=== PATIENT | male | born 1945 | race Caucasian/White ===

== ENCOUNTER 2016-08-02 04:59 | Observation (INO) | payer MEDICARE, BC ==
[2016-08-02] MEDS ORDERED: NITROGLYCERIN SL TABS 0.4 MG TAB SUBLINGUAL STA ×3 (05:22)
[2016-08-02] MEDS ORDERED: ASPIRIN 81 MG CHEW PO STA (05:22)
--- NOTE | 2016-08-02 05:27 | ED ---
General Adult HPI - General Chief complaint: Chest Pain Stated complaint: Chest Pain/Hypertension Time Seen by Provider: 08/02/16 05:12 Source: patient, family, RN notes reviewed Mode of arrival: wheelchair Limitations: no limitations - History of Present Illness Initial comments: Patient is a pleasant 70-year-old male presenting to the emergency department chest discomfort. Symptoms woke him from sleep around 3 AM. Discomfort feels like heaviness or an ache. Discomfort is rated 8/10. Discomfort did radiate a little bit towards the back however no longer does. Discomfort is sternal. No history of similar symptoms previously. Patient's last stress test was between 1 and 2 years ago. No associated nausea, diaphoresis, or dyspnea. No leg pain or swelling. No cough or fever. - Related Data Home Medications Medication Instructions Recorded Confirmed Atorvastatin Calcium [Lipitor] 80 mg PO 08/02/16 Losartan/Hydrochlorothiazide 1 each PO BID 08/02/16 08/02/16 [Losartan-Hctz 100-12.5 mg Tab] Montelukast [Singulair] 10 mg PO DAILY 08/02/16 08/02/16 amLODIPine BESYLATE [Norvasc] 5 mg PO BID 08/02/16 08/02/16 metFORMIN HCL 1,000 mg PO BID 08/02/16 08/02/16 Allergies Allergy/AdvReac Type Severity Reaction Status Date / Time Quinolones Allergy Unknown Verified 07/12/15 08:33 Review of Systems ROS Statement: Those systems with pertinent positive or pertinent negative responses have been documented in the HPI. ROS Other: All systems not noted in ROS Statement are negative. Constitutional: Denies: fever Eyes: Denies: eye pain ENT: Denies: ear pain Respiratory: Denies: cough, dyspnea Cardiovascular: Reports: chest pain Endocrine: Denies: fatigue Gastrointestinal: Denies: abdominal pain Genitourinary: Denies: dysuria Musculoskeletal: Denies: arthralgia Skin: Denies: rash Neurological: Denies: weakness Past Medical History Past Medical History: Asthma, Diabetes Mellitus, Hypertension Additional Past Medical History / Comment(s): malaria History of Any Multi-Drug Resistant Organisms: None Reported Past Surgical History: No Surgical Hx Reported Past Psychological History: No Psychological Hx Reported Smoking Status: Light tobacco smoker Past Alcohol Use History: Occasional Past Drug Use History: None Reported General Exam Limitations: no limitations General appearance: alert, in no apparent distress Head exam: Present: atraumatic Eye exam: Present: normal appearance, PERRL ENT exam: Present: normal oropharynx Neck exam: Present: normal inspection Respiratory exam: Present: normal lung sounds bilaterally. Absent: chest wall tenderness Cardiovascular Exam: Present: regular rate, normal rhythm Expanded Peripheral pulses: 2+: Radial (R), Radial (L), Posterior Tibialis (R), Posterior Tibialis (L) GI/Abdominal exam: Present: soft. Absent: tenderness Extremities exam: Present: normal inspection. Absent: pedal edema, calf tenderness Back exam: Present: normal inspection Neurological exam: Present: alert Psychiatric exam: Present: normal affect, normal mood Skin exam: Absent: rash Course Vital Signs 08/02/16 08/02/16 08/02/16 05:06 05:20 05:50 Temperature 97.9 F Pulse Rate 75 65 68 Respiratory 20 16 16 Rate Blood Pressure 232/109 213/106 149/81 O2 Sat by Pulse 96 98 98 Oximetry 08/02/16 06:07 Temperature Pulse Rate 78 Respiratory 16 Rate Blood Pressure 142/73 O2 Sat by Pulse 98 Oximetry EKG Findings - EKG Comments: EKG Findings:: Normal sinus rhythm at 68. IL 138. QRS 1:30. QT 448. QTC 476. Normal axis. Q wave in lead 3. Right bundle branch block. No acute ST change. Medical Decision Making - Medical Decision Making Patient reevaluated and resting comfortably in bed. Discomfort has improved however not resolved. Blood pressure has improved. Case discussed in detail with Dr. Jackson, who will admit for . Admission orders written. IV heparin started. Consult placed for cardiology. - Lab Data Result diagrams: 08/02/16 05:15 08/02/16 05:15 Lab Results 08/02/16 08/02/16 08/02/16 Range/Units 05:15 05:15 05:15 WBC 8.7 (3.8-10.6) k/uL RBC 4.78 (4.30-5.90) m/uL Hgb 14.4 (13.0-17.5) gm/dL Hct 43.1 (39.0-53.0) % MCV 90.2 (80.0-100.0) fL MCH 30.1 (25.0-35.0) pg MCHC 33.3 (31.0-37.0) g/dL RDW 13.9 (11.5-15.5) % Plt Count 259 (150-450) k/uL Neutrophils % 66 % Lymphocytes % 23 % Monocytes % 6 % Eosinophils % 2 % Basophils % 1 % Neutrophils # 5.7 (1.3-7.7) k/uL Lymphocytes # 2.0 (1.0-4.8) k/uL Monocytes # 0.5 (0-1.0) k/uL Eosinophils # 0.2 (0-0.7) k/uL Basophils # 0.1 (0-0.2) k/uL PT (9.0-12.0) sec INR (<1.1) APTT (22.0-30.0) sec D-Dimer (<0.60) mg/L FEU Sodium 140 (137-145) mmol/L Potassium 4.3 (3.5-5.1) mmol/L Chloride 103 (98-107) mmol/L Carbon Dioxide 26 (22-30) mmol/L Anion Gap 11 mmol/L BUN 19 (9-20) mg/dL Creatinine 1.00 (0.66-1.25) mg/dL Est GFR (MDRD) Af Amer >60 (>60 ml/min/1.73 sqM) Est GFR (MDRD) Non-Af >60 (>60 ml/min/1.73 sqM) Glucose 208 H (74-99) mg/dL Calcium 9.2 (8.4-10.2) mg/dL Magnesium 1.6 (1.6-2.3) mg/dL Total Bilirubin 0.8 (0.2-1.3) mg/dL AST 25 (17-59) U/L ALT 29 (21-72) U/L Alkaline Phosphatase 101 (38-126) U/L Total Creatine Kinase 158 (55-170) U/L CK-MB (CK-2) 2.7 H* (0.0-2.4) ng/mL CK-MB (CK-2) Rel Index 1.7 Troponin I <0.012 (0.000-0.034) ng/mL Total Protein 7.0 (6.3-8.2) g/dL Albumin 3.7 (3.5-5.0) g/dL 04/04/17 Range/Units 05:15 WBC (3.8-10.6) k/uL RBC (4.30-5.90) m/uL Hgb (13.0-17.5) gm/dL Hct (39.0-53.0) % MCV (80.0-100.0) fL MCH (25.0-35.0) pg MCHC (31.0-37.0) g/dL RDW (11.5-15.5) % Plt Count (150-450) k/uL Neutrophils % % Lymphocytes % % Monocytes % % Eosinophils % % Basophils % % Neutrophils # (1.3-7.7) k/uL Lymphocytes # (1.0-4.8) k/uL Monocytes # (0-1.0) k/uL Eosinophils # (0-0.7) k/uL Basophils # (0-0.2) k/uL PT 10.3 (9.0-12.0) sec INR 1.0 (<1.1) APTT 24.9 (22.0-30.0) sec D-Dimer 0.42 (<0.60) mg/L FEU Sodium (137-145) mmol/L Potassium (3.5-5.1) mmol/L Chloride (98-107) mmol/L Carbon Dioxide (22-30) mmol/L Anion Gap mmol/L BUN (9-20) mg/dL Creatinine (0.66-1.25) mg/dL Est GFR (MDRD) Af Amer (>60 ml/min/1.73 sqM) Est GFR (MDRD) Non-Af (>60 ml/min/1.73 sqM) Glucose (74-99) mg/dL Calcium (8.4-10.2) mg/dL Magnesium (1.6-2.3) mg/dL Total Bilirubin (0.2-1.3) mg/dL AST (17-59) U/L ALT (21-72) U/L Alkaline Phosphatase (38-126) U/L Total Creatine Kinase (55-170) U/L CK-MB (CK-2) (0.0-2.4) ng/mL CK-MB (CK-2) Rel Index Troponin I (0.000-0.034) ng/mL Total Protein (6.3-8.2) g/dL Albumin (3.5-5.0) g/dL - Radiology Data Radiology results: image reviewed (Chest x-ray shows no acute process) Critical Care Time Critical Care Time: Yes Total Critical Care Time: 32 Disposition Clinical Impression: Unstable angina pectoris Disposition: ADMITTED IP TO THIS HOSP
[2016-08-02 05:32] LABS: Basophils # (A) 0.1 k/uL (0-0.2); Basophils % (A) 1 %; CH 30.2; CHCM 33.7; Eosinophils # (A) 0.2 k/uL (0-0.7); Eosinophils % (A) 2 %; HCT 43.1 % (39.0-53.0); HDW 2.55; HGB 14.4 gm/dL (13.0-17.5); Luc # (Auto) 0.23; Luc % (Auto) 3; Lymphocytes % (A) 23 %; MCH 30.1 pg (25.0-35.0); MCHC 33.3 g/dL (31.0-37.0); MCV 90.2 fL (80.0-100.0); Mean Platelet Volume 7.6; Monocytes # (A) 0.5 k/uL (0-1.0); Monocytes % (A) 6 %; Neutrophils # (A) 5.7 k/uL (1.3-7.7); Neutrophils % (A) 66 %; RBC 4.78 m/uL (4.30-5.90); RDW 13.9 % (11.5-15.5); WBC 8.7 k/uL (3.8-10.6); WBC (Perox) 8.55
[2016-08-02 05:44] LABS: ALT 29 U/L (21-72); AST 25 U/L (17-59); Alkaline Phosphatase 101 U/L (38-126); Anion Gap 11 mmol/L; Blood Urea Nitrogen 19 mg/dL (9-20); Calcium 9.2 mg/dL (8.4-10.2); Carbon Dioxide 26 mmol/L (22-30); Chloride 103 mmol/L (98-107); Glucose 208 mg/dL (74-99); Magnesium 1.6 mg/dL (1.6-2.3); Non-African American GFR(MDRD) >60 (>60 ml/min/1.73 sqM); Potassium 4.3 mmol/L (3.5-5.1); Sodium 140 mmol/L (137-145); Total Bilirubin 0.8 mg/dL (0.2-1.3)
[2016-08-02 05:46] LABS: Partial Thromboplastin Time 24.9 sec (22.0-30.0); Prothrombin Time 10.3 sec (9.0-12.0)
[2016-08-02 05:49] LABS: Creatine Kinase 158 U/L (55-170)
--- NOTE | 2016-08-02 05:59 | XR ---
EXAM: XR Chest, 1 View. CLINICAL HISTORY: Reason: Chest Pain TECHNIQUE: Frontal view of the chest. COMPARISON: 12/30/2015 FINDINGS: Lungs: Unremarkable. No consolidation. Pleural space: Unremarkable. No pneumothorax. Heart: Unremarkable. No cardiomegaly. Mediastinum: Unremarkable. Bones/joints: No acute osseous abnormality. IMPRESSION: No acute cardiopulmonary process.
[2016-08-02 06:03] LABS: Troponin I <0.012 ng/mL (0.000-0.034)
[2016-08-02 06:06] LABS: Creatine Kinase MB 2.7 ng/mL (0.0-2.4)
[2016-08-02] MEDS ORDERED: NITROGLYCERIN SL TABS 0.4 MG TAB SUBLINGUAL PRN (06:14)
[2016-08-02] MEDS ORDERED: HEPARIN SODIUM,PORCINE 5,000 UNIT/ML 1 ML VIAL IV PRN (06:14)
[2016-08-02] MEDS ORDERED: HEPARIN SODIUM,PORCINE 5,000 UNIT/ML 1 ML VIAL IV ONE (06:14)
[2016-08-02] MEDS ORDERED: MORPHINE SULFATE 4 MG/ML SYRINGE IVP STA (06:38)
[2016-08-02] MEDS: HEPARIN SODIUM,PORCINE/D5W PMX 25,000 UNIT in DEXTROSE/WATER 1 500ML.BAG IV SCH (06:42)
--- NOTE | 2016-08-02 07:59 | P.HPIM ---
History of Present Illness Chief complaint: Chest pain History of present illness: The patient is a 70-year-old gentleman a patient of Dr. Chambers for whom I am covering today who apparently was awakened early this morning from sleep with chest pain. It started more right-sided and moved substernally and was rather severe. It did not radiate to the jaw or to the arms. No nausea vomiting or unusual shortness of breath associated with this. The patient presented to the emergency room and has had some decrease in improvement in his pain as of now he states he is not having any pain. His is at the bedside. Patient states that he has been feeling well recently up until this episode. Past medical history: Patient has history of diabetes, hypertension, hyperlipidemia, asthma. History of tobacco use. Remote history of malaria. Apparently no history of myocardial infarction or stroke. Medications: Lipitor 80 mg daily Losartan-hydrochlorothiazide 100-12.5 one twice a day Singulair 10 mg daily Amlodipine 5 mg twice a day Metformin thousand milligrams twice a day Apparent ALLERGIES to quinolones. Review of systems: No unusual visual disturbances or headaches. No fever or chills or cough. No nausea or vomiting. He denies any urinary or bowel symptoms. No unusual edema or leg discomfort. Social history: The patient lives locally with his and does have a tobacco use disorder. Physical examination: Patient is lying on the stretcher in the emergency room and overall appears comfortable. is at bedside. Temperature 97.3 with a pulse of 61 and respirations 15. Blood pressure 151/83 and he is 97% saturated on 2 L. Head and neck exam unremarkable. Neck supple without adenopathy or thyromegaly detected. No bruits. Lungs are clear to auscultation and percussion. Heart tones were regular without murmurs appreciated. Abdomen is soft and nontender without masses or organomegaly Genital and rectal exam deferred. Extremities reveal no edema. He is alert and oriented. Cranial nerves intact. No focal neurological weakness noted. Laboratory: CBC unremarkable with a white count of 8.7, hemoglobin 14.4 and a platelet count of 259. INR was 1.0. D-dimer 0.4 to. Chemistries show a sodium of 140 with potassium 4.3 and a BUN of 19 with a creatinine 1.0, GFR greater than 60. Liver function tests unremarkable. CK was 158 with an MB of 2.7. Troponin 0.012. Albumin 3.7. EKG showed a regular sinus rhythm with possible evidence for old inferior wall OH. Chest x-ray showed no acute changes. Impressions: 1. Severe chest pain. Patient with multiple risk factors with tobacco use history, hypertension, diabetes, hyperlipidemia. The patient to be admitted to observation with cardiology consult. Follow-up enzymes. Nothing by mouth pending cardiology evaluation. Discussed with patient and at bedside. Further recommendations pending cardiology evaluation and workup. Past Medical History Past Medical History: Asthma, Diabetes Mellitus, Hypertension Additional Past Medical History / Comment(s): malaria History of Any Multi-Drug Resistant Organisms: None Reported Past Surgical History: No Surgical Hx Reported Past Psychological History: No Psychological Hx Reported Smoking Status: Light tobacco smoker Past Alcohol Use History: Occasional Past Drug Use History: None Reported Medications and Allergies Home Medications Medication Instructions Recorded Confirmed Type Aspirin 324 mg PO DAILY 08/02/16 08/02/16 History Atorvastatin Calcium [Lipitor] 80 mg PO HS 08/02/16 08/02/16 History Budesonide/Formoterol Fumarate 2 puff INHALATION RT-BID 08/02/16 08/02/16 History [Symbicort 160-4.5 Mcg Inhaler] Cholecalciferol [Vitamin D3] 2,000 unit PO DAILY 08/02/16 08/02/16 History Losartan/Hydrochlorothiazide 1 tab PO DAILY 08/02/16 08/02/16 History [Losartan-Hctz 100-12.5 mg Tab] Vgo See Protocol SQ-PUMP DAILY 08/02/16 08/02/16 History amLODIPine BESYLATE [Norvasc] 5 mg PO DAILY 08/02/16 08/02/16 History metFORMIN HCL 1,000 mg PO BID 08/02/16 08/02/16 History Allergies Allergy/AdvReac Type Severity Reaction Status Date / Time amoxicillin [From Augmentin] Allergy Unknown Verified 08/02/16 07:41 clavulanic acid Allergy Unknown Verified 08/02/16 07:41 [From Augmentin] Quinolones Allergy Unknown Verified 08/02/16 07:41 Physical Exam Vitals: Vital Signs Temp Pulse Resp BP Pulse Ox 08/02/16 07:21 97.3 F L 61 15 151/83 97 08/02/16 06:46 64 16 144/81 98 Results CBC & Chem 7: 08/02/16 05:15 08/02/16 05:15
--- NOTE | 2016-08-02 10:51 | P.CRDCN ---
History of Present Illness Consult date: 08/02/16 Requesting physician: Mason Jackson Consult reason: chest pain Chief complaint: Chest pain History of present illness: This is a pleasant 70-year-old gentleman with history of hypertension , hyperlipidemia, diabetes, asthma, occasional cigar smoking, who presented to the hospital with symptoms of chest discomfort. According to the patient, he awoke from sleep with symptoms of chest heaviness and pain in the right upper chest area, it seemed to radiate across to the chest. He denies any associated shortness of breath, no nausea or diaphoresis. Pain did radiate temporarily through to his back. Symptoms lasted until the patient came to the emergency room, he received 3 sublingual nitro with some relief of symptoms, was then given morphine with complete relief of symptoms. Blood pressure on arrival to the emergency room was 232/109, heart rate in the 70s, 96% on room air. EKG on arrival here showed a normal sinus rhythm with a right bundle branch block pattern. Chest x-ray did not reveal any acute cardiopulmonary process. Patient did have a stress echocardiographic study performed in October 2015 which did not reveal any reversible ischemia. EKG performed at that time revealed an incomplete right bundle branch block pattern. Laboratory data was reviewed, CBC normal, d-dimer 0.4, potassium 4.3, BUN 19, creatinine 1.0. Initial troponin 0.012. Magnesium level I.6. At the time of my examination this morning, patient is currently chest pain-free. Blood pressure this morning 128/ 68 with a heart rate in the 70s. Past Medical History Past Medical History: Asthma, Diabetes Mellitus, Eye Disorder, Hyperlipidemia, Hypertension, Syncope Additional Past Medical History / Comment(s): IDDM type II-insulin pump, "silent " [place] in the per EKG, syncopy x2 in 2016, L eye macular pucker-repaired, malaria History of Any Multi-Drug Resistant Organisms: None Reported Past Surgical History: No Surgical Hx Reported Additional Past Surgical History / Comment(s): L eye cataract removed, L eye laser sx, L eye macular pucker surgically repaired, colonoscopy-normal. Past Anesthesia/Blood Transfusion Reactions: No Reported Reaction Past Psychological History: No Psychological Hx Reported Additional Psychological History / Comment(s): Pt resides with his spouse. He is independent. Smoking Status: Former smoker Past Alcohol Use History: Rare Additional Past Alcohol Use History / Comment(s): Pt states he smoked cigars when hunting [id number]. He states he will drink maybe 6 beers a year. Past Drug Use History: None Reported - Past Family History Father Family Medical History: Diabetes Mellitus Additional Family Medical History / Comment(s): Father at the age of 73yrs. Mother Family Medical History: Asthma, COPD, Diabetes Mellitus Additional Family Medical History / Comment(s): Mother at the age of 68yrs. Medications and Allergies Home Medications Medication Instructions Recorded Confirmed Type Aspirin 324 mg PO DAILY 08/02/16 08/02/16 History Atorvastatin Calcium [Lipitor] 80 mg PO HS 08/02/16 08/02/16 History Budesonide/Formoterol Fumarate 2 puff INHALATION RT-BID 08/02/16 08/02/16 History [Symbicort 160-4.5 Mcg Inhaler] Cholecalciferol [Vitamin D3] 2,000 unit PO DAILY 08/02/16 08/02/16 History Losartan/Hydrochlorothiazide 1 tab PO DAILY 08/02/16 08/02/16 History [Losartan-Hctz 100-12.5 mg Tab] Vgo See Protocol SQ-PUMP DAILY 08/02/16 08/02/16 History amLODIPine BESYLATE [Norvasc] 5 mg PO DAILY 08/02/16 08/02/16 History metFORMIN HCL 1,000 mg PO BID 08/02/16 08/02/16 History Allergies Allergy/AdvReac Type Severity Reaction Status Date / Time amoxicillin [From Augmentin] Allergy Unknown Verified 08/02/16 07:41 clavulanic acid Allergy Unknown Verified 08/02/16 07:41 [From Augmentin] Quinolones Allergy Unknown Verified 08/02/16 07:41 Physical Exam Vitals: Vital Signs Temp Pulse Resp BP Pulse Ox 08/02/16 09:13 76 18 128/68 94 L 08/02/16 07:21 97.3 F L 61 15 151/83 97 08/02/16 06:46 64 16 144/81 98 PHYSICAL EXAMINATION: HEENT: [Head is atraumatic, normocephalic. Pupils equal, round. Neck is supple. There is no elevated jugular venous pressure.] HEART EXAMINATION: [Heart S1, S2 normal. No murmur or gallop heard.] CHEST EXAMINATION:[ Lungs are clear to auscultation and precussion. No chest wall tenderness is noted on palpation or with deep breathing.] ABDOMEN: [ Soft, nontender. Bowel sounds are heard. No organomegaly noted]. EXTREMITIES:[ 2+ peripheral pulses with no evidence of peripheral edema and no calf tenderness noted]. NEUROLOGIC [patient is awake, alert and oriented -3.] . Results 08/02/16 05:15 08/02/16 05:15 Current Medications Generic Name Dose Route Start Last Admin Trade Name Freq PRN Reason Stop Dose Admin Aspirin 325 mg 08/03/16 09:00 Aspirin PO DAILY [facility] Heparin Sodium (Porcine) 0 unit 08/02/16 06:14 Heparin IV Q6HR PRN Low PTT Protocol Heparin Sodium/Dextrose 25,000 500 mls @ 20.01 mls/hr 08/02/16 06:15 06:42 unit/ IV Solution IV 10.26 units/kg/hr .Q24H ОЛЬГА 20.01 mls/hr Protocol Administration 10.26 UNITS/KG/HR Nitroglycerin 1 inch 08/02/16 12:00 Nitro-Bid Oint TOPICAL Q6HR [facility] Nitroglycerin 0.4 mg 08/02/16 06:14 Nitrostat SUBLINGUAL Q5M PRN Chest Pain Sodium Chloride 10 ml 08/02/16 09:00 08/02/16 09:32 Saline Flush IV 10 ml BID ОЛЬГА Administration EKG Interpretations (text) EKG shows a normal sinus rhythm with right bundle branch block pattern Assessment and Plan Plan: Assessment and plan #1 midsternal chest pressure and heaviness, initial troponin negative. EKG shows normal sinus rhythm with a right bundle branch block pattern. Stress echocardiographic study performed one year ago was negative for any reversible ischemia. #2 accelerated hypertension #3 history of hypertension #4 diabetes #5 hyperlipidemia #6 asthma Plan We will obtain an echocardiogram with Doppler study. We will also request 2 more troponin values be obtained. The patient is currently chest pain-free, symptoms could be secondary to accelerated hypertension. If the troponins are negative 3 we will recommend stress testing be performed. We will continue IV heparin for now. Resume the patient's losartan, Lipitor, and Norvasc. Further recommendations to follow. DNP note has been reviewed, I agree with a documented findings and plan of care. Patient was seen and examined.
[2016-08-02 12:27] LABS: Glucose,Whole Blood 207 mg/dL (75-99)
[2016-08-02] MEDS ORDERED: INSULIN LISPRO (humaLOG) 300 UNIT/3 ML VIAL SQ PRN (12:54)
[2016-08-02] MEDS ORDERED: INSULIN PUMP BASAL RATES 1 EACH MISC MISCELLANE PRN (12:54)
[2016-08-02 12:55] LABS: Creatine Kinase 113 U/L (55-170)
[2016-08-02 13:09] LABS: Creatine Kinase MB 1.9 ng/mL (0.0-2.4); Troponin I <0.012 ng/mL (0.000-0.034)
--- NOTE | 2016-08-02 13:58 | P.PN ---
Progress Note - Text This is an addendum to the dictated cardiology consultation. The patient presented with chest discomfort that woke him up from sleep, lasting for about 9 hours. He had no associated diaphoresis, nausea or vomiting. He's feeling well at this time. He is usually active physically and he has no symptoms of exertional chest pain no significant dyspnea. He has a long-standing history of diabetes no documented history of CAD. His EKG shows a chronic right bundle branch block and his initial troponin is normal. If his subsequent troponin evaluation is normal then I will proceed with a stress echocardiogram in the morning and depending on those results further recommendations will be made. Thank you for this consult we will follow with you.
[2016-08-02] MEDS: INSULIN PUMP MEAL BOLUS 1 UNIT MISC MISCELLANE SCH (17:47)
[2016-08-02] MEDS: NITROGLYCERIN OINT 1 INCH/GM PACKET TOPICAL SCH ×2 (17:47→21:53)
[2016-08-02 18:36] LABS: Creatine Kinase 107 U/L (55-170)
[2016-08-02 18:50] LABS: Creatine Kinase MB 1.8 ng/mL (0.0-2.4); Troponin I <0.012 ng/mL (0.000-0.034)
[2016-08-02] MEDS ORDERED: ATORVASTATIN 80 MG TAB PO SCH (21:00)
[2016-08-03] MEDS: NITROGLYCERIN OINT 1 INCH/GM PACKET TOPICAL SCH ×2 (06:00→16:36)
[2016-08-03] MEDS: INSULIN PUMP MEAL BOLUS 1 UNIT MISC MISCELLANE SCH ×3 (06:00→13:24)
[2016-08-03 06:49] LABS: Glucose,Whole Blood 138 mg/dL (75-99)
[2016-08-03 07:29] LABS: Mean Platelet Volume 7.6
[2016-08-03 07:48] LABS: Cholesterol 185 mg/dL (<200); HDL Cholesterol 51 mg/dL (40-60); Triglycerides 126 mg/dL (<150)
[2016-08-03] MEDS: HEPARIN SODIUM,PORCINE/D5W PMX 25,000 UNIT in DEXTROSE/WATER 1 500ML.BAG IV SCH (08:35)
[2016-08-03 08:46] VITALS: RESP 18
[2016-08-03] MEDS ORDERED: HYDROCHLOROTHIAZIDE 12.5 MG CAP PO SCH (09:00)
[2016-08-03] MEDS ORDERED: amLODIPine 5 MG TAB PO SCH (09:00)
[2016-08-03] MEDS ORDERED: ASPIRIN 81 MG CHEW PO SCH (09:00)
[2016-08-03] MEDS ORDERED: ASPIRIN 325 MG TAB PO SCH (09:00)
[2016-08-03] MEDS ORDERED: LOSARTAN 50 MG TAB PO SCH (09:00)
--- NOTE | 2016-08-03 10:06 | ECHOF ---
Referral Reason:chest pain MEASUREMENTS -------- HEIGHT: 175.3 cm WEIGHT: 97.5 kg BP: 128/68 RVIDd: 3.3 cm (< 3.3) IVSd: 1.4 cm (0.6 - 1.1) LVIDd: 3.9 cm (3.9 - 5.3) LVPWd: 1.2 cm (0.6 - 1.1) IVSs: 2.0 cm LVIDs: 3.1 cm LVPWs: 1.9 cm LA Diam: 4.0 cm (2.7 - 3.8) LAESV Index (A-L): 32.83 ml/m Ao Diam: 3.2 cm (2.0 - 3.7) AV Cusp: 2.0 cm (1.5 - 2.6) LA Diam: 3.0 cm (2.7 - 3.8) MV EXCURSION: 14.924 mm (> 18.000) MV EF SLOPE: 50 mm/s (70 - 150) EPSS: 0.3 cm MV E Elliott: 0.70 m/s MV DecT: 255 ms MV A Elliott: 1.05 m/s MV E/A Ratio: 0.67 RAP: 5.00 mmHg RVSP: 24.90 mmHg FINDINGS -------- Sinus rhythm. This was a technically adequate study. There is moderate concentric left ventricular hypertrophy. Overall left ventricular systolic function is normal with, an EF between 55 - 60 %. The right ventricle is mildly enlarged. The right atrium is normal in size. Aortic valve is trileaflet and is mildly thickened. The mitral valve leaflets are mildly thickened. Mild mitral annular calcification present. Mild mitral regurgitation is present. Mild tricuspid regurgitation present. Right ventricular systolic pressure is normal at < 35 mmHg. Trace/mild (physiologic) pulmonic regurgitation. The aortic root size is normal. IVC Not well visulized. There is no pericardial effusion. CONCLUSIONS -------- 1. Sinus rhythm. 2. Mild mitral regurgitation is present. 3. Mild tricuspid regurgitation present. 4. Right ventricular systolic pressure is normal at < 35 mmHg. 5. Trace/mild (physiologic) pulmonic regurgitation. 6. The aortic root size is normal. 7. IVC Not well visulized. 8. There is no pericardial effusion. 9. This was a technically adequate study. 10. There is moderate concentric left ventricular hypertrophy. 11. Overall left ventricular systolic function is normal with, an EF between 55 - 60 %. 12. The right ventricle is mildly enlarged. 13. The right atrium is normal in size. 14. Aortic valve is trileaflet and is mildly thickened. 15. The mitral valve leaflets are mildly thickened. 16. Mild mitral annular calcification present. LADLE BUILDER: Ugo Huerta RDCS
--- NOTE | 2016-08-03 11:56 | PN ---
Mr. Hyatt presented with an episode of chest pain. He has hypertension and diabetes. He has no documented history of CAD. He has a right bundle and his 3 sets of troponins are normal. He is going for an EKG. He is resting comfortably without symptoms. Vital signs are stable. S1, S2 heard normally. Lungs are clear. Abdomen and lower extremity exam is unchanged. Blood pressure is 156/70. He does have history of hypertension and type 2 diabetes mellitus with better blood pressure control lately. He will have a stress echocardiogram. Following this, based on findings, will make further recommendations. I discussed my thoughts in detail with the patient.
[2016-08-03 12:20] LABS: Glucose,Whole Blood 153 mg/dL (75-99)
--- NOTE | 2016-08-03 12:31 | ECHOS ---
DATE OF SERVICE: 08/03/2016 AGE: 70Y SEX: M HT: 69 WT: 215lbs. Protocol Tushar: X Others: Stress Echo Stage: II Dur. of Exercise: 5 minutes *Heart Rate Blood Pressure *Rest: 101 Rest: 162/71 * *Max. Achieved: 141 Maximum BP: 209/63 85% PMHR: 128 100% PMHR: 150 *METS: 7.1 INDICATIONS: Chest pain. MEDICATIONS: Aspirin. Patient was exercised for a total period of 5 minutes. Peak heart rate of 141 was achieved. Maximum blood pressure of 209/63 mmHg is noted. Resting EKG shows normal sinus rhythm with a QRS morphology suggestive of right bundle branch block pattern is noted. No ST segment depression suggestive of ischemia is noted. The baseline echocardiographic ( ) ventricular chamber size with normal left ventricular systolic function. In the immediate postexercise period, normal increase in the wall thickness and contractility is noted. FINAL IMPRESSION: 1. This stress echocardiographic study is negative for stress-induced ischemia. 2. Patient's exercise tolerance is average. 3. Patient did not complain of any anginal pain during the test.
[2016-08-03 12:43] VITALS: BP 168/92; PULSE 82; TEMP 97.8
--- NOTE | 2016-08-03 13:38 | US ---
EXAMINATION TYPE: US gallbladder DATE OF EXAM: 08/03/2016 1:14 PM COMPARISON: NONE CLINICAL HISTORY: pain. EXAM MEASUREMENTS: Liver Length: 16.7 cm Gallbladder Wall: 1.1 cm CBD: 0.4 cm Right Kidney: 13.5 x 6.4 x 5.3 cm Patient has extensive overlying midline bowel gas and somewhat large abdomen, technically difficult s tudy Pancreas: Obscured by bowel gas Liver: portions visualized wnl, difficult to view Gallbladder: wall severely thickened Evidence for sonographic Núñez's sign: no CBD: difficult to visualize, small portion viewed appeared wnl Right Kidney: cyst upper pole measuring 3.5 x 3.9 x 3.5cm, enlarged IMPRESSION: 1. Gallbladder wall is thickened measuring greater than a centimeter. No definite stones. Consider co rrelation with HIDA scan to assess for acalculous cholecystitis. 2. Pattern to the liver suggests fatty infiltration or hepatitis correlate clinically. 3. Simple appearing right renal cyst
--- NOTE | 2016-08-04 22:43 | DS ---
DATE OF ADMISSION: 08/02/2016 DATE OF DISCHARGE: 08/03/2016 CHIEF COMPLAINT: Re-evaluation. HISTORY OF PRESENT ILLNESS: This 70-year-old gentleman was admitted to the hospital with chest pain. The patient said he woke up with chest pain, which is in the right side of the chest and radiating towards the mid back. The patient said the pain was like an ache, dull ache sensation with heaviness sensation, no associated diaphoresis, nausea, vomiting, heartburn, or any palpitations. The patient did have progression of the symptoms, presented to the emergency room and especially his blood pressure was elevated. In the ER, the patient was noted to have elevated blood pressures which did improve with treatment especially for pain. The patient following that was admitted to the hospital as he also had a right bundle branch block. The patient has undergone serial troponin evaluations which remained in the normal range. In view of this, the patient underwent a stress echo which did reveal not any stress-induced ischemia. The patient did not have any symptoms during testing. The patient also underwent an ultrasound of the gallbladder which revealed no cholelithiasis, however, it does reveal thickening of the gallbladder. The gallbladder wall was not thickened, measuring greater than 1 cm. No definite stones were seen. No ( ) fat infiltration in the liver and right renal cyst. ASSESSMENT: 1. Chest pain, etiology undetermined. 2. Possibility of chronic cholecystitis. 3. Accelerated hypertension. 4. Diabetes mellitus. 5. History of bronchial asthma. PLAN: The patient was discharged home. We will evaluate the patient as outpatient. He is probably going to require his gallbladder to be removed due to history of diabetes mellitus and significantly thickened gallbladder. Patient's condition was discussed with the patient. Prognosis guarded. Follow up in the outpatient. The patient was seen by cardiology.
== END 2016-08-03 16:11 | disposition home or self-care (01) ==
LOC: EC 04:59 → 3OBS 06:14
PROVIDERS: ADMIT Internal Medicine; ATTEND Internal Medicine
DX: R07.9 Chest pain, unspecified (principal); I10 Essential (primary) hypertension; E11.9 Type 2 diabetes mellitus without complications; J45.909 Unspecified asthma, uncomplicated; I45.10 Unspecified right bundle-branch block; N28.1 Cyst of kidney, acquired; E78.5 Hyperlipidemia, unspecified; F17.200 Nicotine dependence, unspecified, uncomplicated; I25.2 Old myocardial infarction; Z79.4 Long term (current) use of insulin; Z79.82 Long term (current) use of aspirin; Z79.899 Other long term (current) drug therapy; Z79.51 Long term (current) use of inhaled steroids; Z79.84 Long term (current) use of oral hypoglycemic drugs; Z88.0 Allergy status to penicillin; Z88.8 Allergy status to other drugs, medicaments and biological substances
CPT/HCPCS: 96365 ×2; 96366 ×5; 96376 ×2; 96375 ×2; 99291 ×2; 36415; 93005; 93017; 93306; 93350; 85379; 80061; 80053; 82550; 82553; 83735; 84484; 85025; 85049; 85610; 85730 ×2; 71020; 76705; G0378 ×2; J2270; J1644 ×2

== ENCOUNTER 2019-02-19 07:36 | Emergency (ER) | payer MEDICARE, BC ==
[2019-02-19 07:41] VITALS: TEMP 98.9
[2019-02-19] MEDS ORDERED: IPRATROPIUM-ALBUTEROL 3 ML NEB INHALATION STA (07:52)
--- NOTE | 2019-02-19 07:55 | ED ---
General Adult HPI - General Chief complaint: Shortness of Breath Stated complaint: asthma Time Seen by Provider: 02/19/19 07:43 Source: patient, RN notes reviewed Mode of arrival: ambulatory Limitations: no limitations - History of Present Illness Initial comments: Patient is a pleasant 73-year-old male with history of asthma presenting to the emergency department complaining of shortness of breath. Patient uses inhaler with minimal improvement. Patient states he has been painting for the past 2 days and has been exposed to paint fumes which she attributes to worsening symptoms. Patient does have mild dry cough. No fever. No chest pain. No leg pain. Patient is on Eliquis secondary to history of DVT. Patient has been taking his Eliquis. Patient does have some mild leg swelling however states is chronic and unchanged. - Related Data Home Medications Medication Instructions Recorded Confirmed Aspirin 324 mg PO DAILY 08/02/16 08/02/16 Atorvastatin Calcium [Lipitor] 80 mg PO HS 08/02/16 08/02/16 Budesonide/Formoterol Fumarate 2 puff INHALATION RT-BID 08/02/16 08/02/16 [Symbicort 160-4.5 Mcg Inhaler] Cholecalciferol [Vitamin D3] 2,000 unit PO DAILY 08/02/16 08/02/16 Losartan/Hydrochlorothiazide 1 tab PO DAILY 08/02/16 08/02/16 [Losartan-Hctz 100-12.5 mg Tab] Vgo See Protocol SQ-PUMP DAILY 08/02/16 08/02/16 amLODIPine BESYLATE [Norvasc] 5 mg PO DAILY 08/02/16 08/02/16 metFORMIN HCL 1,000 mg PO BID 08/02/16 08/02/16 Previous Rx's Medication Instructions Recorded Azithromycin [Zithromax Z-pack] 250 mg PO DIRECTED #6 tab 02/19/19 predniSONE 20 mg PO BID #10 tab 02/19/19 Allergies Allergy/AdvReac Type Severity Reaction Status Date / Time amoxicillin [From Augmentin] Allergy Unknown Verified 08/02/16 07:41 clavulanic acid Allergy Unknown Verified 08/02/16 07:41 [From Augmentin] Iodine and Iodide Containing Allergy Rash/Hives Verified 04/18/17 11:21 Produc Quinolones Allergy Unknown Verified 08/02/16 07:41 Review of Systems ROS Statement: Those systems with pertinent positive or pertinent negative responses have been documented in the HPI. ROS Other: All systems not noted in ROS Statement are negative. Constitutional: Denies: fever Eyes: Denies: eye pain ENT: Denies: ear pain Respiratory: Reports: as per HPI, cough, dyspnea Cardiovascular: Denies: chest pain Endocrine: Denies: fatigue Gastrointestinal: Denies: abdominal pain Genitourinary: Denies: dysuria Musculoskeletal: Denies: back pain Skin: Denies: rash Neurological: Denies: weakness Past Medical History Past Medical History: Asthma, Diabetes Mellitus, Eye Disorder, Hyperlipidemia, Hypertension, Syncope Additional Past Medical History / Comment(s): IDDM type II-insulin pump, "silent" ND in the per EKG, syncopy x2 in 2016, L eye macular pucker- repaired, malaria History of Any Multi-Drug Resistant Organisms: None Reported Past Surgical History: No Surgical Hx Reported Additional Past Surgical History / Comment(s): L eye cataract removed, L eye laser sx, L eye macular pucker surgically repaired, colonoscopy-normal. Past Anesthesia/Blood Transfusion Reactions: No Reported Reaction Past Psychological History: No Psychological Hx Reported Smoking Status: Former smoker Past Alcohol Use History: Rare Past Drug Use History: None Reported - Past Family History Father Family Medical History: Diabetes Mellitus Additional Family Medical History / Comment(s): Father at the age of 73yrs. Mother Family Medical History: Asthma, COPD, Diabetes Mellitus Additional Family Medical History / Comment(s): Mother at the age of 68yrs. General Exam Limitations: no limitations General appearance: alert, in no apparent distress Head exam: Present: normocephalic Eye exam: Present: normal appearance Neck exam: Present: normal inspection Respiratory exam: Present: wheezes Cardiovascular Exam: Present: regular rate, normal rhythm GI/Abdominal exam: Present: soft. Absent: tenderness Extremities exam: Present: pedal edema (+1 bilateral). Absent: calf tenderness Neurological exam: Present: alert Psychiatric exam: Present: normal affect, normal mood Skin exam: Present: normal color Course Vital Signs 02/19/19 02/19/19 02/19/19 07:39 07:41 08:21 Temperature 98.9 F Pulse Rate 89 68 Respiratory 17 20 Rate Blood Pressure 201/96 O2 Sat by Pulse 99 Oximetry 02/19/19 02/19/19 08:30 08:35 Temperature Pulse Rate 72 72 Respiratory 20 Rate Blood Pressure 179/80 O2 Sat by Pulse 95 Oximetry Medical Decision Making - Medical Decision Making Patient reevaluated and improved. Lungs are clear to auscultation. Patient states breathing is not quite 100% normal however is much better than last night and when he arrived. Patient states he is comfortable with his breathing and discharged home. Patient states he does have a follow-up appointment within a week with pulmonary and will keep this. Patient and updated on chest x-ray results and need for repeat chest x-ray in the next few weeks. - Radiology Data Radiology results: image reviewed (Chest x-ray shows possible developing atelectasis or infiltrate peripheral right base.) Disposition Clinical Impression: Asthma with acute exacerbation Disposition: HOME SELF-CARE Condition: Stable Instructions (If sedation given, give patient instructions): Asthma (ED), Pneumonia (ED) Additional Instructions: Please follow-up with primary care physician in the next couple of days for recheck. Please follow-up with pulmonary physician within the next week as planned. He will need to have repeat x-ray done within the next couple of weeks up until one month. Return for fevers, difficult to breathing, worsening symptoms or any other concerns. Prescriptions: predniSONE 20 mg PO BID #10 tab Azithromycin [Zithromax Z-pack] 250 mg PO DIRECTED #6 tab Is patient prescribed a controlled substance at d/c from ED?: No Referrals: Yasmani Chambers MD [Primary Care Provider] - 1-2 days Addi Matos DO [Doctor of Osteopathic Medicine] - 1-2 days Time of Disposition: 08:55
[2019-02-19 08:13] VITALS: RESP 20
[2019-02-19 08:31] VITALS: BP 179/80; PULSE 72
--- NOTE | 2019-02-19 08:36 | XR ---
EXAMINATION TYPE: XR chest 1V portable DATE OF EXAM: 02/19/2019 Comparison: 08/02/2016 Clinical History: 73 year-old male shortness of breath, dyspnea Findings: Heart upper limits of normal in size. Underpenetration from large patient body habitus. Mild diffuse interstitial prominence. Strandy atelectasis in the lower lungs. 8 cc peripheral lung densities relat ed to overlying soft tissue. Focal opacity of the peripheral right lower lung difficult to exclude. Impression: Limited portable exam. Follow up recommended. Unable to exclude developing atelectasis or infiltrate at the peripheral right base.
[2019-02-19] MEDS ORDERED: predniSONE 50 MG TAB PO STA (08:56)
[2019-02-19] MEDS ORDERED: AZITHROMYCIN 500 MG TAB PO STA (08:56)
== END 2019-02-19 09:23 | disposition home or self-care (01) ==
LOC: EC 07:36
DX: J45.901 Unspecified asthma with (acute) exacerbation (principal); R60.0 Localized edema; E11.9 Type 2 diabetes mellitus without complications; E78.5 Hyperlipidemia, unspecified; I10 Essential (primary) hypertension; I25.2 Old myocardial infarction; Z87.891 Personal history of nicotine dependence; Z88.0 Allergy status to penicillin; Z88.1 Allergy status to other antibiotic agents; Z91.048 Other nonmedicinal substance allergy status; Z79.01 Long term (current) use of anticoagulants; Z79.51 Long term (current) use of inhaled steroids; Z79.82 Long term (current) use of aspirin; Z79.84 Long term (current) use of oral hypoglycemic drugs; Z79.899 Other long term (current) drug therapy; Z96.41 Presence of insulin pump (external) (internal); Z86.718 Personal history of other venous thrombosis and embolism; Z82.5 Family history of asthma and other chronic lower respiratory diseases
CPT/HCPCS: 94640; 71045; 99285; J7512

== ENCOUNTER 2019-08-15 15:21 | Observation (INO) | payer MEDICARE, BC ==
[2019-08-15 17:04] LABS: Basophils % (A) 0 %; Eosinophils # (A) 0.1 k/uL (0-0.7); Eosinophils % (A) 2 %; HCT 34.6 % (39.0-53.0); HGB 11.1 gm/dL (13.0-17.5); Lymphocytes # (A) 0.6 k/uL (1.0-4.8); Lymphocytes % (A) 14 %; MCHC 32.1 g/dL (31.0-37.0); MCV 90.4 fL (80.0-100.0); Mean Platelet Volume 8.3; Monocytes # (A) 0.3 k/uL (0-1.0); Monocytes % (A) 7 %; Neutrophils % (A) 73 %; Platelet Count 254 k/uL (150-450); RBC 3.83 m/uL (4.30-5.90); RDW 14.1 % (11.5-15.5); WBC 4.1 k/uL (3.8-10.6)
[2019-08-15 17:13] LABS: Partial Thromboplastin Time 24.2 sec (22.0-30.0); Prothrombin Time 10.4 sec (9.0-12.0)
[2019-08-15 17:15] LABS: ALT 13 U/L (4-49); AST 23 U/L (17-59); African American GFR (CKD) >90 (>60 ml/min/1.73 sqM); Albumin 3.3 g/dL (3.5-5.0); Alkaline Phosphatase 84 U/L (38-126); Anion Gap 6 mmol/L; Blood Urea Nitrogen 17 mg/dL (9-20); Calcium 8.6 mg/dL (8.4-10.2); Carbon Dioxide 25 mmol/L (22-30); Chloride 105 mmol/L (98-107); Glucose 187 mg/dL (74-99); Non-African American GFR(CKD) 86 (>60 ml/min/1.73 sqM); Sodium 136 mmol/L (137-145); Total Bilirubin 0.8 mg/dL (0.2-1.3); Total Protein 6.3 g/dL (6.3-8.2)
--- NOTE | 2019-08-15 17:21 | XR ---
EXAMINATION TYPE: XR chest 2V DATE OF EXAM: 08/15/2019 COMPARISON: 02/19/2019 INDICATION: Altered mental status TECHNIQUE: Frontal and lateral views of the chest are obtained. FINDINGS: The heart size is normal. The pulmonary vasculature is normal. The lungs are clear. IMPRESSION: 1. No acute pulmonary process.
--- NOTE | 2019-08-15 17:25 | CT ---
EXAMINATION TYPE: CT brain wo con DATE OF EXAM: 08/15/2019 COMPARISON: 10/03/2014 INDICATION: Thought to speech difficulty. DLP: 1159.4 mGycm, Automated exposure control for dose reduction was used. CONTRAST: None CT of the brain is performed utilizing 3 mm thick sections through the posterior fossa and 3 mm thick sections through the remaining calvarium. Study is performed within 24 hours of arrival to the hosp [facility]. No abnormal hyperdensity is present to suggest an acute intracranial hemorrhage. No mass lesion is evident. There is some hypodensity within the anterior brainstem. This could be related to beam hardening zach fact from the skull base. This may be a change however from 2014. MRI may be more sensitive for this region evaluation. Acute infarction is not otherwise identified. Ventricles and sulci are appropriate for the patient age. Paranasal sinuses and mastoid air cells within the [id number] are clear. IMPRESSIONS: 1. Some hypodensity within the brainstem more likely related to artifact. Lacunar infarction could be considered. Consider additional evaluation with MRI which may be more sensitive for evaluating thi s region. 2. CT of the brain is otherwise unremarkable.
--- NOTE | 2019-08-15 18:12 | ED ---
General Adult HPI - General Chief complaint: Neuro Symptoms/Deficit Stated complaint: speech difficulty, rash Time Seen by Provider: 08/15/19 16:05 Source: patient Mode of arrival: wheelchair Limitations: no limitations - History of Present Illness Initial comments: The patient is a 73-year-old male with past medical history of diabetes, hypertension who presents to emergency room with reported expressive aphasia. The patient's is accompanied by his . states that around 11:30 AM the patient began having expressive aphasia. Symptoms lasted for approximately 15 minutes before they spontaneously resolved. The patient once again had expre ssive aphasia at 2:30. This is when the brought him into the emergency department. At the time he arrived his symptoms had completely resolved. He denies any unilateral numbness or weakness. No headaches or visual changes. Denies vertiginous symptoms. No facial droop. She has had a history of a TIA 20 years ago. The patient does see Dr. Munoz in the outpatient setting and the patient denies any fevers or chills. No nausea or vomiting. Denies any chest pain. The patient is on Eliquis for DVT. The patient also reports to a diffuse body rash. He states he gets it yearly. He has seen a clinical molecular geneticist for it was put on recurring. Reports that he has since run out of the cream and is requesting refill. There are no alleviating, precipitating or modifying factors - Related Data Home Medications Medication Instructions Recorded Confirmed Atorvastatin Calcium [Lipitor] 80 mg PO DAILY 08/02/16 08/15/19 Budesonide/Formoterol Fumarate 2 puff INHALATION RT-BID 08/02/16 08/15/19 [Symbicort 160-4.5 Mcg Inhaler] amLODIPine BESYLATE [Norvasc] 5 mg PO BID 08/02/16 08/15/19 metFORMIN HCL 1,000 mg PO BID 08/02/16 08/15/19 Albuterol Nebulized [Ventolin 2.5 mg INHALATION RT-QID PRN 02/19/19 08/15/19 Nebulized] Apixaban [Eliquis] 5 mg PO BID 02/19/19 08/15/19 Bicalutamide [Casodex] 50 mg PO DAILY 02/19/19 08/15/19 Losartan/Hydrochlorothiazide 1 tab PO DAILY 02/19/19 08/15/19 [Losartan-Hctz 100-12.5 mg Tab] Montelukast [Singulair] 10 mg PO HS 02/19/19 08/15/19 Pantoprazole Sodium [Protonix] 40 mg PO DAILY 02/19/19 08/15/19 Tiotropium 18 Mcg/Puff [Spiriva] 1 cap INHALATION RT-HS 02/19/19 08/15/19 Betamethasone Valerate [Luxiq 1 applic TOPICAL BID 08/15/19 08/15/19 0.01%] Calcium Carbonate/Vitamin D3 1 tab PO DAILY 08/15/19 08/15/19 [Calcium 600-Vit D3 400 Tablet] Escitalopram [Lexapro] 10 mg PO DAILY 08/15/19 08/15/19 Tamsulosin [Flomax] 0.4 mg PO HS 08/15/19 08/15/19 V-Go 40 0.01 units SQ-PUMP CONTINUOUS 08/15/19 08/15/19 hydrOXYzine HCL 10 - 20 mg PO QID 08/15/19 08/15/19 predniSONE 10 mg PO BID 08/15/19 08/15/19 Aspirin [Adult Low Dose Aspirin EC] 81 mg PO DAILY 08/16/19 08/16/19 Atorvastatin [Lipitor] 80 mg PO HS 08/16/19 08/16/19 Mepolizumab [Nucala] 100 mg SQ Q28D 08/16/19 08/16/19 Allergies Allergy/AdvReac Type Severity Reaction Status Date / Time amoxicillin [From Augmentin] Allergy Vomiting Verified 08/15/19 19:06 clavulanic acid Allergy Vomiting Verified 08/15/19 19:06 [From Augmentin] Iodine and Iodide Containing Allergy Rash/Hives Verified 08/15/19 19:06 Produc Quinolones Allergy Unknown Verified 08/15/19 19:06 Review of Systems ROS Statement: Those systems with pertinent positive or pertinent negative responses have been documented in the HPI. ROS Other: All systems not noted in ROS Statement are negative. Past Medical History Past Medical History: Asthma, Diabetes Mellitus, Eye Disorder, Hyperlipidemia, Hypertension, Syncope Additional Past Medical History / Comment(s): IDDM type II-insulin pump, "silent" MD in the s per EKG, syncopy x2 in 2016, L eye macular pucker- repaired, malaria History of Any Multi-Drug Resistant Organisms: None Reported Past Surgical History: No Surgical Hx Reported Additional Past Surgical History / Comment(s): L eye cataract removed, L eye laser sx, L eye macular pucker surgically repaired, colonoscopy-normal. Past Anesthesia/Blood Transfusion Reactions: No Reported Reaction Past Psychological History: No Psychological Hx Reported Smoking Status: Former smoker Past Alcohol Use History: Rare Past Drug Use History: None Reported - Past Family History Father Family Medical History: Diabetes Mellitus Additional Family Medical History / Comment(s): Father at the age of 73yrs. Mother Family Medical History: Asthma, COPD, Diabetes Mellitus Additional Family Medical History / Comment(s): Mother at the age of 68yrs. General Exam Limitations: no limitations General appearance: alert, in no apparent distress Head exam: Present: atraumatic, normocephalic, normal inspection Eye exam: Present: normal appearance, PERRL, EOMI. Absent: scleral icterus, conjunctival injection, periorbital swelling ENT exam: Present: normal exam, mucous membranes moist Neck exam: Present: normal inspection. Absent: tenderness, meningismus, lymphadenopathy Respiratory exam: Present: normal lung sounds bilaterally. Absent: respiratory distress, wheezes, rales, rhonchi, stridor Cardiovascular Exam: Present: regular rate, normal rhythm, normal heart sounds. Absent: systolic murmur, diastolic murmur, rubs, gallop, clicks GI/Abdominal exam: Present: soft, normal bowel sounds. Absent: distended, tenderness, guarding, rebound, rigid Extremities exam: Present: normal inspection, full ROM, normal capillary refill. Absent: tenderness, pedal edema, joint swelling, calf tenderness Back exam: Present: normal inspection Neurological exam: Present: alert, oriented X3, CN II-XII intact Psychiatric exam: Present: normal affect, normal mood Skin exam: Present: warm, dry, rash (bilateral dorsal upper extremities. Spares palms and soles. Also on trunk and lower extremities. Appears patchy, red with skin fissuring) Course Vital Signs 08/15/19 08/15/19 08/15/19 15:23 16:45 19:22 Temperature 97.7 F Pulse Rate 88 74 72 Respiratory 18 18 18 Rate Blood Pressure 152/80 116/80 187/75 O2 Sat by Pulse 99 100 100 Oximetry 08/15/19 21:11 Temperature 98.2 F Pulse Rate 72 Respiratory 18 Rate Blood Pressure 185/89 O2 Sat by Pulse 99 Oximetry EKG Findings - EKG Comments: EKG Findings:: EKG demonstrates a sinus rhythm with premature atrial complexes. Rate of 72. AK interval 152. QRS 126. QTC of 494. No acute ST segment elevations or depressions concerning for ischemic changes Medical Decision Making - Medical Decision Making Upon arrival the patient is placed into room 15. A thorough history and ph ysical exam is performed. NIH stroke scale is performed and demonstrates a score of 0. Peripheral IV was established. Laboratory studies were conducted. Glucose is 187. Troponin is negative. I did do a CT of the patient's brain without contrast as he is ALLERGIC to iodine which demonstrated some hypodensity within the brainstem more likely related to artifact. Lacunar infarct be considered. We discussed results with the patient. He continues to have an NH of 0. Discussed diagnosis, differential and treatment options. I did recommend hospital admission for neurologic consultation. The patient did agree to this. Patient was admitted to [facility] with neurology consult. I ordered steroid cream and benadryl for the patients rash. The patient remained in stable condition and was transported to the floor - Lab Data Result diagrams: 08/15/19 16:42 08/16/19 07:03 Lab Results 08/15/19 08/15/19 08/15/19 Range/Units 16:42 16:42 16:42 WBC 4.1 (3.8-10.6) k/uL RBC 3.83 L (4.30-5.90) m/uL Hgb 11.1 L (13.0-17.5) gm/dL Hct 34.6 L (39.0-53.0) % MCV 90.4 (80.0-100.0) fL MCH 29.0 (25.0-35.0) pg MCHC 32.1 (31.0-37.0) g/dL RDW 14.1 (11.5-15.5) % Plt Count 254 (150-450) k/uL Neutrophils % 73 % Lymphocytes % 14 % Monocytes % 7 % Eosinophils % 2 % Basophils % 0 % Neutrophils # 3.0 (1.3-7.7) k/uL Lymphocytes # 0.6 L (1.0-4.8) k/uL Monocytes # 0.3 (0-1.0) k/uL Eosinophils # 0.1 (0-0.7) k/uL Basophils # 0.0 (0-0.2) k/uL PT 10.4 (9.0-12.0) sec INR 1.0 (<1.2) APTT 24.2 (22.0-30.0) sec Sodium 136 L (137-145) mmol/L Potassium 4.0 (3.5-5.1) mmol/L Chloride 105 (98-107) mmol/L Carbon Dioxide 25 (22-30) mmol/L Anion Gap 6 mmol/L BUN 17 (9-20) mg/dL Creatinine 0.86 (0.66-1.25) mg/dL Est GFR (CKD-EPI)AfAm >90 (>60 ml/min/1.73 sqM) Est GFR (CKD-EPI)NonAf 86 (>60 ml/min/1.73 sqM) Glucose 187 H (74-99) mg/dL Calcium 8.6 (8.4-10.2) mg/dL Total Bilirubin 0.8 (0.2-1.3) mg/dL AST 23 (17-59) U/L ALT 13 (4-49) U/L Alkaline Phosphatase 84 (38-126) U/L Troponin I (0.000-0.034) ng/mL Total Protein 6.3 (6.3-8.2) g/dL Albumin 3.3 L (3.5-5.0) g/dL 08/15/19 Range/Units 16:42 WBC (3.8-10.6) k/uL RBC (4.30-5.90) m/uL Hgb (13.0-17.5) gm/dL Hct (39.0-53.0) % MCV (80.0-100.0) fL MCH (25.0-35.0) pg MCHC (31.0-37.0) g/dL RDW (11.5-15.5) % Plt Count (150-450) k/uL Neutrophils % % Lymphocytes % % Monocytes % % Eosinophils % % Basophils % % Neutrophils # (1.3-7.7) k/uL Lymphocytes # (1.0-4.8) k/uL Monocytes # (0-1.0) k/uL Eosinophils # (0-0.7) k/uL Basophils # (0-0.2) k/uL PT (9.0-12.0) sec INR (<1.2) APTT (22.0-30.0) sec Sodium (137-145) mmol/L Potassium (3.5-5.1) mmol/L Chloride (98-107) mmol/L Carbon Dioxide (22-30) mmol/L Anion Gap mmol/L BUN (9-20) mg/dL Creatinine (0.66-1.25) mg/dL Est GFR (CKD-EPI)AfAm (>60 ml/min/1.73 sqM) Est GFR (CKD-EPI)NonAf (>60 ml/min/1.73 sqM) Glucose (74-99) mg/dL Calcium (8.4-10.2) mg/dL Total Bilirubin (0.2-1.3) mg/dL AST (17-59) U/L ALT (4-49) U/L Alkaline Phosphatase (38-126) U/L Troponin I <0.012 (0.000-0.034) ng/mL Total Protein (6.3-8.2) g/dL Albumin (3.5-5.0) g/dL Disposition Clinical Impression: Transient cerebral ischemia, Expressive aphasia Disposition: ADMITTED IP TO [facility] Condition: Stable Is patient prescribed a controlled substance at d/c from ED?: No Decision to Admit Reason: Admit from EC Decision Date: 08/15/19 Decision Time: 19:33
[2019-08-15] MEDS ORDERED: ASPIRIN 325 MG TAB PO STA (18:31)
[2019-08-15] MEDS ORDERED: diphenhydrAMINE 50 MG/ML 1 ML VIAL IVP STA (19:20)
[2019-08-15] MEDS ORDERED: ALBUTEROL NEBULIZED 2.5 MG/3 ML INHALATION PRN (19:48)
[2019-08-15] MEDS: IPRATROPIUM 0.5 MG/2.5 ML NEBU INHALATION SCH (20:58)
[2019-08-15] MEDS: SYMBICORT 160-4.5 MCG INHALER INHALATION SCH (20:58)
[2019-08-15] MEDS: TRIAMCINOLONE ACET 0.1% OINTMENT 15 GM TUBE TOPICAL SCH ×2 (20:58→22:29)
[2019-08-15] MEDS ORDERED: MONTELUKAST 10 MG TAB PO SCH (21:00)
[2019-08-15] MEDS ORDERED: TAMSULOSIN 0.4 MG CAP.ER.24H PO SCH (21:00)
[2019-08-15] MEDS: APIXABAN 5 MG TAB PO SCH (22:29)
[2019-08-15] MEDS: predniSONE 10 MG TAB PO SCH (22:29)
[2019-08-15] MEDS: amLODIPine 5 MG TAB PO SCH (22:29)
[2019-08-15] MEDS: TRIAMCINOLONE 0.1% CREAM 80 GM TUBE TOPICAL SCH (22:30)
[2019-08-15] MEDS ORDERED: INSPUCOR MISCELLANE PRN (22:56)
[2019-08-15] MEDS ORDERED: INSULIN PUMP BASAL RATES 1 EACH MISC MISCELLANE PRN (22:56)
[2019-08-15] MEDS ORDERED: INSULIN ASPART (NovoLOG) 100 UNIT/ML VIAL SQ PRN (22:56)
[2019-08-16] MEDS ORDERED: cloNIDine HCL 0.1 MG TAB PO PRN (00:50)
[2019-08-16] MEDS: INSULIN ASPART (NovoLOG) 100 UNIT/ML VIAL SQ SCH ×3 (01:15→13:43)
--- NOTE | 2019-08-16 01:22 | P.HPIM ---
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 Patient comes in today after experiencing expressive aphasia he had 2 episodes each lasting anywhere between 15-30 minutes first one happened before noon but then when he had another episode later in the afternoon she grew concerned and said to come to the hospital for evaluation he denies otherwise any headache or changes in his vision or hearing denies any other focal neuro deficits denies any falling denies any weakness numbness or tingling in his extremities. Head denies any associated chest pain trouble breathing or palpitations. He does actually reported some occasional skipped beats. Patient reports compliance with his medications he uses an insulin pump for diabetes. He also on blood thinner for history of venous thrombus involves and he has history of prostate cancer status post radiation. In the ED plain CT of the head showed hypodense area suspicious and brainstem and possible lacunar infarct. MRI of the brain was recommended EKG showed bigeminy Patient was found to have anemia, he is on blood thinners. He denies any GI bleeding however he does report abnormal colonoscopy in the past with polyps he was planning on having a colonoscopy this year however due to the statewide restrictions from the pandemic he had to reschedule Patient has moderate persistent asthma. Otherwise complains of his medications Currently upon interviewing the patient reports complete resolution of the symptoms, as an NIH score in the ED was 0 Review of Systems Pertinent positives as noted in HPI. All other systems were reviewed and are negative Past Medical History Past Medical History: Asthma, Diabetes Mellitus, Eye Disorder, Hyperlipidemia, Hypertension, Syncope Additional Past Medical History / Comment(s): IDDM type II-insulin pump, "silent" [place] in the 1979's per EKG, syncopy x2 in 2016, L eye macular pucker- repaired, malaria History of Any Multi-Drug Resistant Organisms: None Reported Past Surgical History: No Surgical Hx Reported Additional Past Surgical History / Comment(s): L eye cataract removed, L eye laser sx, L eye macular pucker surgically repaired, colonoscopy-normal. Past Anesthesia/Blood Transfusion Reactions: No Reported Reaction Past Psychological History: No Psychological Hx Reported Smoking Status: Former smoker Past Alcohol Use History: Rare Past Drug Use History: None Reported - Past Family History Father Family Medical History: Diabetes Mellitus Additional Family Medical History / Comment(s): Father at the age of 73yrs. Mother Family Medical History: Asthma, COPD, Diabetes Mellitus Additional Family Medical History / Comment(s): Mother at the age of 68yrs. Medications and Allergies Home Medications Medication Instructions Recorded Confirmed Type Atorvastatin Calcium [Lipitor] 80 mg PO DAILY 08/02/16 08/15/19 History Budesonide/Formoterol Fumarate 2 puff INHALATION RT-BID 08/02/16 08/15/19 History [Symbicort 160-4.5 Mcg Inhaler] amLODIPine BESYLATE [Norvasc] 5 mg PO BID 08/02/16 08/15/19 History metFORMIN HCL 1,000 mg PO BID 08/02/16 08/15/19 History Albuterol Nebulized [Ventolin 2.5 mg INHALATION RT-QID PRN 02/19/19 08/15/19 History Nebulized] Apixaban [Eliquis] 5 mg PO BID 02/19/19 08/15/19 History Bicalutamide [Casodex] 50 mg PO DAILY 02/19/19 08/15/19 History Losartan/Hydrochlorothiazide 1 tab PO DAILY 02/19/19 08/15/19 History [Losartan-Hctz 100-12.5 mg Tab] Montelukast [Singulair] 10 mg PO HS 02/19/19 08/15/19 History Pantoprazole Sodium [Protonix] 40 mg PO DAILY 02/19/19 08/15/19 History Tiotropium 18 Mcg/Puff [Spiriva] 1 cap INHALATION RT-HS 02/19/19 08/15/19 History Betamethasone Valerate [Luxiq 1 applic TOPICAL BID 08/15/19 08/15/19 History 0.01%] Calcium Carbonate/Vitamin D3 1 tab PO DAILY 08/15/19 08/15/19 History [Calcium 600-Vit D3 400 Tablet] Escitalopram [Lexapro] 10 mg PO DAILY 08/15/19 08/15/19 History Tamsulosin [Flomax] 0.4 mg PO HS 08/15/19 08/15/19 History V-Go 40 0.01 units SQ-PUMP CONTINUOUS 08/15/19 08/15/19 History hydrOXYzine HCL 10 - 20 mg PO QID 08/15/19 08/15/19 History predniSONE 10 mg PO BID 08/15/19 08/15/19 History Allergies Allergy/AdvReac Type Severity Reaction Status Date / Time amoxicillin [From Augmentin] Allergy Vomiting Verified 08/15/19 19:06 clavulanic acid Allergy Vomiting Verified 08/15/19 19:06 [From Augmentin] Iodine and Iodide Containing Allergy Rash/Hives Verified 08/15/19 19:06 Produc Quinolones Allergy Unknown Verified 08/15/19 19:06 Physical Exam Vitals: Vital Signs Temp Pulse Resp BP Pulse Ox 08/15/19 21:11 98.2 F 72 18 185/89 99 08/15/19 19:22 72 18 187/75 100 08/15/19 16:45 74 18 116/80 100 08/15/19 15:23 97.7 F 88 18 152/80 99 Intake and Output 08/15/19 08/15/19 08/15/19 06:59 14:59 22:59 Other: Weight 95.254 kg Constitutional: No acute distress, conversant, pleasant Eyes: Anicteric sclerae, moist conjunctiva, no lid-lag Pupils equal round reactive to light ENMT: NC/AT Oropharynx clear, no erythema, exudates Neck: Supple, FROM, no masses, or JVD No carotid bruits No thyromegaly Lungs: Clear to auscultation Clear to percussion Normal respiratory effort, no accessory muscle use Cardiovascular: Heart regular in rate and rhythm, with occasional skipped beats No murmurs, gallops, or rubs No peripheral edema Abdominal: Soft Nontender, no guarding, rebound or rigidity Abdomen moving with respiration Normoactive bowel sounds No hepatomegaly, No splenomegaly No palpable mass No abdominal wall hernia noted Skin: Diffuse erythematous scaly plaques over extensor surfaces of upper extremity and bilateral pharynx otherwise Normal temperature, tone, texture, turgor No induration No subcutaneous nodules No ulcers Extremities: No digital cyanosis No clubbing Pedal pulses intact and symmetrical Radial pulses intact and symmetrical No calf tenderness Psychiatric: Alert and oriented to person, place and time Appropriate affect fair judgement Neuro Muscles Strength 5/5 in all 4 extremities Sensation to light touch grossly present throughout Cranial nerves II-XII grossly intact No focal sensory deficits Finger-nose test was intact heel long is intact, no evidence of nystagmus, Lymphatics: no palpable cervical or supraclavicular , or inguinal lymph nodes Results CBC & Chem 7: 08/15/19 16:42 08/15/19 16:42 Labs: Abnormal Lab Results - Last 24 Hours (Table) 08/15/19 08/15/19 Range/Units 16:42 16:42 RBC 3.83 L (4.30-5.90) m/uL Hgb 11.1 L (13.0-17.5) gm/dL Hct 34.6 L (39.0-53.0) % Lymphocytes # 0.6 L (1.0-4.8) k/uL Sodium 136 L (137-145) mmol/L Glucose 187 H (74-99) mg/dL Albumin 3.3 L (3.5-5.0) g/dL Assessment and Plan Assessment: 73 year old male with 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 patient comes in with expressive aphasia , suspected to have experienced TIA. admitted for neurological evaluation anticipated length of stay <2 midnights TIA , expressive aphasia , resolved malignant hypertension , allow for permissive HTN neuro checks monitor vital signs permissive hypertension , PRN clonidine for SBP> 185, patient is on blood thinner for history of DVT resume home blood pressure meds in AM check Echo, carotid doppler, TSH, lipid profile asa, statin neuro consult PT/OT CT brain showed areas suspicious for brainstem hypodensity , and lacunar infarct, consider MRI of the brain bigeminy follow up electrolytes, Ca, K , Mg, PO4 replace as needed ditch tender check echo Mild anemia Denies any GI bleeding Patient reports he is planning on getting colonoscopy this year he had abnormal ones in the past chronic conditions insulin dependant DM on insulin pump, A1C 8.3% psoriasis mod persistent asthma , resume home meds, prn duonebs history of prostate cancer s/p radiation therapy venous thromboembolism , continue eliquis hyperlipidemia , resume statin CODE STATUS:full code DVT prophylaxis: on eliquis BID for history of venous thromboembolism Discussed with: Patient, ER, RN Anticipated length of stay < than [address]: home A total of 60 minutes was spent on the care of this complex patient more than 50% of the time was spent in counseling and care coordination.
[2019-08-16] MEDS ORDERED: PANTOPRAZOLE 40 MG TABLET PO SCH (07:30)
[2019-08-16 07:33] LABS: ALT 13 U/L (4-49); AST 20 U/L (17-59); African American GFR (CKD) >90 (>60 ml/min/1.73 sqM); Albumin 2.9 g/dL (3.5-5.0); Alkaline Phosphatase 74 U/L (38-126); Anion Gap 7 mmol/L; Blood Urea Nitrogen 15 mg/dL (9-20); Calcium 8.6 mg/dL (8.4-10.2); Carbon Dioxide 24 mmol/L (22-30); Chloride 107 mmol/L (98-107); Cholesterol 181 mg/dL (<200); Glucose 256 mg/dL (74-99); HDL Cholesterol 43 mg/dL (40-60); LDL Cholesterol,Calculated 120 mg/dL (0-99); Magnesium 1.1 mg/dL (1.6-2.3); Non-African American GFR(CKD) 86 (>60 ml/min/1.73 sqM); Phosphorus 3.5 mg/dL (2.5-4.5); Sodium 138 mmol/L (137-145); Total Bilirubin 0.9 mg/dL (0.2-1.3); Total Protein 5.9 g/dL (6.3-8.2); Triglycerides 88 mg/dL (<150)
[2019-08-16] MEDS: IPRATROPIUM 0.5 MG/2.5 ML NEBU INHALATION SCH ×3 (07:42→16:05)
[2019-08-16] MEDS: SYMBICORT 160-4.5 MCG INHALER INHALATION SCH (07:42)
[2019-08-16] MEDS: INSULIN PUMP MEAL BOLUS 1 UNIT MISC MISCELLANE SCH ×2 (08:20→12:00)
[2019-08-16] MEDS: predniSONE 10 MG TAB PO SCH (08:21)
[2019-08-16] MEDS: amLODIPine 5 MG TAB PO SCH (08:21)
[2019-08-16] MEDS: APIXABAN 5 MG TAB PO SCH (08:21)
[2019-08-16] MEDS: TRIAMCINOLONE 0.1% CREAM 80 GM TUBE TOPICAL SCH (08:26)
[2019-08-16] MEDS: TRIAMCINOLONE ACET 0.1% OINTMENT 15 GM TUBE TOPICAL SCH (08:26)
[2019-08-16] MEDS ORDERED: HYDROCHLOROTHIAZIDE 12.5 MG CAP PO SCH (09:00)
[2019-08-16] MEDS ORDERED: ESCITALOPRAM 10 MG TAB PO SCH (09:00)
[2019-08-16] MEDS ORDERED: ASPIRIN 81 MG PO SCH (09:00)
[2019-08-16] MEDS ORDERED: ATORVASTATIN 80 MG TAB PO SCH (09:00)
[2019-08-16] MEDS ORDERED: LOSARTAN 50 MG TAB PO SCH (09:00)
[2019-08-16] MEDS ORDERED: BICALUTAMIDE 50 MG TAB PO SCH (09:00)
[2019-08-16] MEDS ORDERED: CALCIUM CARB-VIT D 500MG-200UN 1 EACH TAB PO SCH (09:00)
--- NOTE | 2019-08-16 09:13 | US ---
EXAMINATION TYPE: US carotid duplex BILAT DATE OF EXAM: 08/16/2019 COMPARISON: NONE CLINICAL HISTORY: tia. EXAM MEASUREMENTS: RIGHT: Peak Systolic Velocity (PSV) cm/sec ----- Right CCA: 98.5 ----- Right ICA: 96.9 ----- Right ECA: 193.3 ICA/CCA ratio: 1.0 RIGHT: End Diastole cm/sec ----- Right CCA: 15.5 ----- Right ICA: 16.2 ----- Right ECA: 7.5 LEFT: Peak Systolic Velocity (PSV) cm/sec ----- Left CCA: 93.3 ----- Left ICA: 149.1 ----- Left ECA: 207.9 ICA/CCA ratio: 1.6 LEFT: End Diastole cm/sec ----- Left CCA: 12.4 ----- Left ICA: 17.1 ----- Left ECA: 7.2 VERTEBRALS (direction of flow): Right Vertebral: Antegrade Left Vertebral: Antegrade Rhythm: Arrhythmia Grayscale, color Doppler, spectral Doppler imaging performed of the carotid arteries. There are ather osclerotic changes at the carotid bulb regions with shadowing, mild increase in velocity on left ICA, and bilateral ECA's. No significant velocity increase seen in right ICA. No hemodynamic significant stenosis is suspected on waveform analysis IMPRESSION: Only mild elevation of velocity in the proximal internal carotid artery on the left. Hem odynamic significant stenosis by Doppler criteria is not thought likely. Carotid CTA could be perform ed for additional evaluation as indicated Criteria for Assigning % of Stenosis / Diameter reduction (Estimation based on the indirect measurements of the internal carotid artery velocities (ICA PSV). 1. Normal (no stenosis)=ICA PSV < 125 cm/s: ratio < 2.0: ICA EDV<40 cm/s. 2. Less than 50% stenosis=ICA PSV < 125 cm/s: ratio < 2.0: ICA EDV<40 cm/s. 3. 50 to 69% stenosis=ICA PSV of 125 to 230 cm/s: ration 2.0 ? 4.0: ICA EDV 40-100 cm/s. 4. Greater than 70% stenosis to near occlusion= ICA PSV > 230 cm/s: ratio > 4.0: ICA EDV > 100 cm/s. 5. Near occlusion= ICA PSV velocities may be low or undetectable: variable ratio and ICA EDV. 6. Total occlusion=unable to detect flow.
--- NOTE | 2019-08-16 09:35 | ECHOF ---
Referral Reason:tia MEASUREMENTS -------- HEIGHT: 180.3 cm WEIGHT: 94.3 kg BP: 144/66 IVSd: 1.9 cm (0.6 - 1.1) LVIDd: 3.5 cm (3.9 - 5.3) LVPWd: 1.5 cm (0.6 - 1.1) IVSs: 1.9 cm LVIDs: 1.5 cm LVPWs: 1.6 cm LAESV Index (A-L): 31.44 ml/m Ao Diam: 3.2 cm (2.0 - 3.7) AV Cusp: 1.9 cm (1.5 - 2.6) LA Diam: 4.3 cm (2.7 - 3.8) MV EXCURSION: 12.495 mm (> 18.000) MV EF SLOPE: 74 mm/s (70 - 150) EPSS: 0.7 cm MV E Elliott: 0.79 m/s MV DecT: 239 ms MV A Elliott: 1.24 m/s MV E/A Ratio: 0.64 RAP: 5.00 mmHg RVSP: 25.88 mmHg FINDINGS -------- Resting tachycardia (HR>100bpm). This was a technically adequate study. The left ventricular size is normal. There is severe concentric left ventricular hypertrophy. Ove rall left ventricular systolic function is normal with, an EF between 60 - 65 %. The right ventricle is normal in size. Normal LA size by volume 22+/-6 ml/m2. The right atrial size is normal. Aortic valve is trileaflet and is mildly thickened. Moderate mitral annular calcification present. Mild mitral regurgitation is present. The tricuspid valve appears structurally normal. Trace tricuspid regurgitation present. Right sola tricular systolic pressure is normal at < 35 mmHg. The pulmonic valve was not well visualized. There is no pulmonic regurgitation present. The aortic root size is normal. IVC Not well visulized. There is no pericardial effusion. CONCLUSIONS -------- 1. There is severe concentric left ventricular hypertrophy. 2. Overall left ventricular systolic function is normal with, an EF between 60 - 65 %. 3. Normal LA size by volume 22+/-6 ml/m2. 4. Aortic valve is trileaflet and is mildly thickened. 5. Moderate mitral annular calcification present. 6. Mild mitral regurgitation is present. 7. Trace tricuspid regurgitation present. [employer] T[employer]ATMENT ENGINEER: Kellie Tripathi RDCS
--- NOTE | 2019-08-16 13:13 | MR ---
EXAMINATION TYPE: MR brain wo con DATE OF EXAM: 08/16/2019 COMPARISON: 02/19/2016 HISTORY: Aphasia, suspected TIA CONTRAST: Performed utilizing 0 mL intravenous Gadavist gadolinium contrast. TECHNIQUE: Multiplanar, multiecho imaging on a 3.0 Danelle magnet is performed through the brain. Stud y is performed within 24 hours of arrival to the hospital. The craniovertebral junction is normal. The pituitary is normal. Diffusion-weighted imaging is performed. No abnormal hyperintensity is present to suggest an acute i ntracranial infarct or acute ischemic change. There is some hyperintensity within the left loretta compatible some microvascular ischemic change. Some white matter change may be in the right cerebellar peduncle. Mild periventricular white matter hyper intensity is present likely on the basis of microvascular ischemic change. Findings were present prev iously but progressive over the interval. Right cerebellar peduncle white matter change in the extent of the periventricular white matter is increased. Ventricles and sulci are appropriate for the patient age. IMPRESSIONS: 1. Chronic appearing white matter changes and atrophy progressive from 2016. Differential diagnosis c ould include multiple sclerosis. 2. No suspicious changes to suggest acute ischemic change.
--- NOTE | 2019-08-16 13:36 | P.CNNES ---
History of Present Illness Consult date: 08/16/19 Requesting physician: Margie March Reason for Consult: Possible TIA History of Present Illness: Patient is a 73-year-old male, who came to the hospital after he experienced 2 episodes of expressive aphasia, lasting between 15-30 minutes. Patient states that yesterday at 10 AM he had sudden onset of speech difficulty. It lasted for about half an hour. He had a second episode at 3:30 PM that also lasted for the same period of time and then went away. Therefore he came to the ER. Patient states that he could still think clearly, knew the words and what he wanted to say, but the words would not come out right. He states that if we was trying to say "Monday", something else would come out which would not have any sense. He denied any facial droop, blurred vision, loss of vision, focal numbness tingling, focal weakness or balance issue. Patient states that he had a similar episode last March, and another episode couple years prior. Overall, he has now 4 such spells. Patient underwent Chest x-ray showed no acute pulmonary process. CT head showed some hypodensity within the brainstem more likely related to artifact. Lacunar infarction could be considered. Consider additional evaluation with MRI which may be more sensitive for evaluating this region. EKG shows sinus rhythm with premature atrial complexes. Right bundle branch block. Inferior infarct, age undetermined. Carotid Doppler showed only mild elevation of velocities in the proximal ICA on the left. Hemodynamic significant stenosis by Doppler criteria is not thought likely. Carotid CTA could be performed for initial evaluation as indicated. 2-D echo showed severe concentric LVH. Left ventricle systolic function is 60-65%. Normal left atrial size. Aortic valve is trileaflet and is mildly thickened. Moderate mitral annular calcification. Mild mitral regurgitation. Patient's blood test shows normal WBC hemoglobin 11.1, PTT PTT, Chem-7 normal. Hemoglobin A1c 9.7 on 04/15/2019. Total cholesterol is 181 LDL 120, HDL 43 and triglycerides 88. TSH normal. Patient has history of diabetes for the last 30 years, also has hypertension, hyperlipidemia. Patient non-tobacco user. Doesn't drink alcohol. Patient t akes Apixaban 5 mg twice a day. He denies missing any doses of his medication. He does not take any antiplatelet medication with it. Patient denies any previous history of seizures or family history of epilepsy. Review of Systems Present completely unremarkable. Please refer to a note for details. Past Medical History Past Medical History: Asthma, Diabetes Mellitus, Eye Disorder, Hyperlipidemia, Hypertension, Syncope Additional Past Medical History / Comment(s): IDDM type II-insulin pump, "silent" [place] in the per EKG, syncopy x2 in 2016, L eye macular pucker- repaired, malaria History of Any Multi-Drug Resistant Organisms: None Reported Past Surgical History: No Surgical Hx Reported Additional Past Surgical History / Comment(s): L eye cataract removed, L eye laser sx, L eye macular pucker surgically repaired, colonoscopy-normal. Past Anesthesia/Blood Transfusion Reactions: No Reported Reaction Past Psychological History: No Psychological Hx Reported Smoking Status: Former smoker Past Alcohol Use History: Rare Past Drug Use History: None Reported - Past Family History Father Family Medical History: Diabetes Mellitus Additional Family Medical History / Comment(s): Father at the age of 73yrs. Mother Family Medical History: Asthma, COPD, Diabetes Mellitus Additional Family Medical History / Comment(s): Mother at the age of 68yrs. Medications and Allergies Home Medications Medication Instructions Recorded Confirmed Type Atorvastatin Calcium [Lipitor] 80 mg PO DAILY 08/02/16 08/15/19 History Budesonide/Formoterol Fumarate 2 puff INHALATION RT-BID 08/02/16 08/15/19 History [Symbicort 160-4.5 Mcg Inhaler] amLODIPine BESYLATE [Norvasc] 5 mg PO BID 08/02/16 08/15/19 History metFORMIN HCL 1,000 mg PO BID 08/02/16 08/15/19 History Albuterol Nebulized [Ventolin 2.5 mg INHALATION RT-QID PRN 02/19/19 08/15/19 History Nebulized] Apixaban [Eliquis] 5 mg PO BID 02/19/19 08/15/19 History Bicalutamide [Casodex] 50 mg PO DAILY 02/19/19 08/15/19 History Losartan/Hydrochlorothiazide 1 tab PO DAILY 02/19/19 08/15/19 History [Losartan-Hctz 100-12.5 mg Tab] Montelukast [Singulair] 10 mg PO HS 02/19/19 08/15/19 History Pantoprazole Sodium [Protonix] 40 mg PO DAILY 02/19/19 08/15/19 History Tiotropium 18 Mcg/Puff [Spiriva] 1 cap INHALATION RT-HS 02/19/19 08/15/19 History Betamethasone Valerate [Luxiq 1 applic TOPICAL BID 08/15/19 08/15/19 History 0.01%] Calcium Carbonate/Vitamin D3 1 tab PO DAILY 08/15/19 08/15/19 History [Calcium 600-Vit D3 400 Tablet] Escitalopram [Lexapro] 10 mg PO DAILY 08/15/19 08/15/19 History Tamsulosin [Flomax] 0.4 mg PO HS 08/15/19 08/15/19 History V-Go 40 0.01 units SQ-PUMP CONTINUOUS 08/15/19 08/15/19 History hydrOXYzine HCL 10 - 20 mg PO QID 08/15/19 08/15/19 History predniSONE 10 mg PO BID 08/15/19 08/15/19 History Mepolizumab [Nucala] 100 mg SQ Q28D 08/16/19 08/16/19 History Allergies Allergy/AdvReac Type Severity Reaction Status Date / Time amoxicillin [From Augmentin] Allergy Vomiting Verified 08/15/19 19:06 clavulanic acid Allergy Vomiting Verified 08/15/19 19:06 [From Augmentin] Iodine and Iodide Containing Allergy Rash/Hives Verified 08/15/19 19:06 Produc Quinolones Allergy Unknown Verified 08/15/19 19:06 Physical Examination - Vital Signs Vital Signs: Vital Signs Temp Pulse Pulse Resp BP BP Pulse Ox 08/16/19 08:00 98.5 F 99 17 141/71 94 L 08/16/19 07:51 98 08/16/19 07:44 92 08/16/19 04:00 98.2 F 92 16 144/66 95 08/16/19 01:33 172/80 08/16/19 00:00 97.9 F 84 16 220/95 97 08/15/19 22:05 97.5 F L 88 16 186/79 98 08/15/19 21:11 98.2 F 72 18 185/89 99 08/15/19 19:22 72 18 187/75 100 08/15/19 16:45 74 18 116/80 100 08/15/19 15:23 97.7 F 88 18 152/80 99 Intake and Output 04/16/20 04/17/20 04/17/20 22:59 06:59 14:59 Output Total 1 Balance -1 Output: Urine 1 Other: Voiding Method Toilet # Bowel Movements 0 Weight 94.5 kg 94.5 kg On examination patient is an elderly male, in no distress. Patient is alert and awake oriented to time place and person. Speech and language functions recent and remote memory normal. Attention and concentration fund of knowledge is adequate. On cranial nerve examination pupils are round and reactive to light, visual anaya are full, extraocular muscles are intact with no nystagmus. Face is symmetric, tongue protrudes the midline. Palatal elevation and sensation normal. On muscle strength testing there is no pronator drift and the strength is normal in arms and legs distally and proximally refle xes are 1+ and plantars downgoing sensory touch is equal. No ataxia for [id number] testing. Tone and bulk of muscles normal. There is no carotid bruit or murmur. Peripheral pulses present. Results - Laboratory Findings CBC and BMP: 08/15/19 16:42 08/16/19 07:03 Abnormal Lab Findings: Abnormal Labs 08/15/19 08/15/19 08/16/19 16:42 16:42 07:03 RBC 3.83 L Hgb 11.1 L Hct 34.6 L Lymphocytes # 0.6 L Sodium 136 L Glucose 187 H 256 H Magnesium 1.1 L Total Protein 5.9 L Albumin 3.3 L 2.9 L LDL Cholesterol, Calc 120 H Assessment and Plan Assessment: * Recurrent episodes of expressive aphasia lasting for half an hour, of unclear etiology. No other associated focal neurological symptoms associated with it. No alteration in level of consciousness, or altered mentation. Differential diagnosis is between TIAs versus focal (simple partial) seizures. * Hypertension * Diabetes * Hyperlipidemia Plan: * Patient underwent MRI of the brain, which revealed no acute ischemic process. It revealed small vessel ischemic disease. Old right pontine lacune. * We will check EEG to evaluate for any interictal epileptiform activity. * We will consider adding aspirin 81 mg daily for stroke prevention related to small vessel/atherosclerotic cerebrovascular disease. * Strongly recommend optimizing all vascular risk factors including control of diabetes to target hemoglobin A1c <7.0 and LDL <70. Addendum: EEG was performed, which is normal. Suggest adding aspirin 81 mg to the regimen. Optimize stroke risk factors as mentioned above.
[2019-08-16 14:29] VITALS: BP 154/72; PULSE 94; RESP 16; TEMP 98
--- NOTE | 2019-08-16 15:26 | P.DS ---
Providers Date of admission: 08/15/19 18:34 Expected date of discharge: 08/16/19 Attending physician: Ling Livingston MD Consults: 08/15/19 18:33 Consult Physician Routine Consulting Provider: Candy Kelly Consult Reason/Comments: possible TIA Do you want consulting provider notified?: Yes Primary care physician: Yasmani Chambers - Discharge Diagnosis(es) (1) Transient cerebral ischemia Current Visit: Yes Status: Acute Hospital Course: Patient is a 73-year-old male with history of diabetes type 2 A1c of 8.3%, uncontrolled hypertension, history of prostate cancer and DVT L [place]. Patient presented with 2 episodes of expressive aphasia lasting between 50-30 minutes one abnormal on the day of admission and then mildly tender afternoon patient was brought to the emergency room his initial workup was negative. Plain CT of the head showed hypodense areas suspicious and a possible coronary infarct with recommendation for MRI of the brain. Patient was found to have anemia denied any GI bleeding he does have a past for later colonoscopy. Patient is seen by neurology he had an MRI of the head that was negative for any acute event. Recommended aggressive lifestyle modification. Patient needs better control of his diabetes type 2 for a goal A1c less than 7. He was started on aspirin and Lipitor place a follow-up with his primary care physician Pertinent Studies: MRI of the brain without contrast negative, eeg negative Patient Condition at Discharge: Stable Plan - Discharge Summary Discharge Rx Participant: No New Discharge Prescriptions: No Action metFORMIN HCL 1,000 mg PO BID amLODIPine BESYLATE [Norvasc] 5 mg PO BID Atorvastatin Calcium [Lipitor] 80 mg PO DAILY Budesonide/Formoterol Fumarate [Symbicort 160-4.5 Mcg Inhaler] 2 puff INHALATION RT-BID Albuterol Nebulized [Ventolin Nebulized] 2.5 mg INHALATION RT-QID PRN PRN Reason: Shortness Of Breath Apixaban [Eliquis] 5 mg PO BID Bicalutamide [Casodex] 50 mg PO DAILY Losartan/Hydrochlorothiazide [Losartan-Hctz 100-12.5 mg Tab] 1 tab PO DAILY Montelukast [Singulair] 10 mg PO HS Pantoprazole Sodium [Protonix] 40 mg PO DAILY Tiotropium 18 Mcg/Puff [Spiriva] 1 cap INHALATION RT-HS V-Go 40 0.01 units SQ-PUMP CONTINUOUS predniSONE 10 mg PO BID hydrOXYzine HCL 10 - 20 mg PO QID Escitalopram [Lexapro] 10 mg PO DAILY Betamethasone Valerate [Luxiq 0.01%] 1 applic TOPICAL BID Calcium Carbonate/Vitamin D3 [Calcium 600-Vit D3 400 Tablet] 1 tab PO DAILY Tamsulosin [Flomax] 0.4 mg PO HS Mepolizumab [Nucala] 100 mg SQ Q28D Atorvastatin [Lipitor] 80 mg PO HS Aspirin [Adult Low Dose Aspirin EC] 81 mg PO DAILY Discharge Medication List Atorvastatin Calcium [Lipitor] 80 mg PO DAILY 08/02/16 [History] Budesonide/Formoterol Fumarate [Symbicort 160-4.5 Mcg Inhaler] 2 puff INHALATION RT-BID 08/02/16 [History] amLODIPine BESYLATE [Norvasc] 5 mg PO BID 08/02/16 [History] metFORMIN HCL 1,000 mg PO BID 08/02/16 [History] Albuterol Nebulized [Ventolin Nebulized] 2.5 mg INHALATION RT-QID PRN 02/19/19 [History] Apixaban [Eliquis] 5 mg PO BID 02/19/19 [History] Bicalutamide [Casodex] 50 mg PO DAILY 02/19/19 [History] Losartan/Hydrochlorothiazide [Losartan-Hctz 100-12.5 mg Tab] 1 tab PO DAILY 02/19/19 [History] Montelukast [Singulair] 10 mg PO HS 02/19/19 [History] Pantoprazole Sodium [Protonix] 40 mg PO DAILY 02/19/19 [History] Tiotropium 18 Mcg/Puff [Spiriva] 1 cap INHALATION RT-HS 02/19/19 [History] Betamethasone Valerate [Luxiq 0.01%] 1 applic TOPICAL BID 08/15/19 [History] Calcium Carbonate/Vitamin D3 [Calcium 600-Vit D3 400 Tablet] 1 tab PO DAILY 08/15/19 [History] Escitalopram [Lexapro] 10 mg PO DAILY 08/15/19 [History] Tamsulosin [Flomax] 0.4 mg PO HS 08/15/19 [History] V-Go 40 0.01 units SQ-PUMP CONTINUOUS 08/15/19 [History] hydrOXYzine HCL 10 - 20 mg PO QID 08/15/19 [History] predniSONE 10 mg PO BID 08/15/19 [History] Aspirin [Adult Low Dose Aspirin EC] 81 mg PO DAILY 08/16/19 [History] Atorvastatin [Lipitor] 80 mg PO HS 08/16/19 [History] Mepolizumab [Nucala] 100 mg SQ Q28D 08/16/19 [History] Follow up Appointment(s)/Referral(s): Yasmani Chambers MD [Primary Care Provider] - 1-2 days Discharge Disposition: HOME SELF-CARE
--- NOTE | 2019-08-19 10:30 | EEG ---
ELECTROENCEPHALOGRAM REPORT DATE OF SERVICE: 08/16/2019 PREAMBLE: This is a 73-year-old male with recurrent episodes of expressive aphasia. Rule out seizure disorder. EEG FINDINGS: This is a 21 channel, routine EEG recording in a patient utilizing the 10/20 international system with bipolar and referential montages. The background consists of well developed, well regulated, moderate voltage activity and 8-10 hertz alpha. Background is posterior dominant and reactive to eye opening and closing. Myogenic artifact was seen. The photic driving response was not seen. Different stages of sleep were not seen. No focal or generalized epileptiform activity was seen. IMPRESSION: This is a normal awake EEG. No focal lateralized or epileptiform activity was seen. MMODL / IJN: [id number] /
== END 2019-08-16 16:29 | disposition home or self-care (01) ==
LOC: EC 15:21 → 3SCARD 18:34
PROVIDERS: ADMIT Internal Medicine; ATTEND Internal Medicine
DX: G45.9 Transient cerebral ischemic attack, unspecified (principal); I10 Essential (primary) hypertension; E11.9 Type 2 diabetes mellitus without complications; R21 Rash and other nonspecific skin eruption; J45.40 Moderate persistent asthma, uncomplicated; E78.5 Hyperlipidemia, unspecified; D64.9 Anemia, unspecified; I25.2 Old myocardial infarction; R00.8 Other abnormalities of heart beat; L40.9 Psoriasis, unspecified; I45.10 Unspecified right bundle-branch block; I49.1 Atrial premature depolarization; I34.0 Nonrheumatic mitral (valve) insufficiency; Z96.41 Presence of insulin pump (external) (internal); Z79.01 Long term (current) use of anticoagulants; Z79.51 Long term (current) use of inhaled steroids; Z79.82 Long term (current) use of aspirin; Z79.52 Long term (current) use of systemic steroids; Z79.899 Other long term (current) drug therapy; Z88.0 Allergy status to penicillin; Z88.8 Allergy status to other drugs, medicaments and biological substances; Z91.048 Other nonmedicinal substance allergy status; Z86.13 Personal history of malaria; Z86.73 Personal history of transient ischemic attack (TIA), and cerebral infarction without residual deficits; Z98.42 Cataract extraction status, left eye; Z86.69 Personal history of other diseases of the nervous system and sense organs; Z87.891 Personal history of nicotine dependence; Z85.46 Personal history of malignant neoplasm of prostate; Z86.718 Personal history of other venous thrombosis and embolism; Z92.3 Personal history of irradiation; Z83.3 Family history of diabetes mellitus; Z82.5 Family history of asthma and other chronic lower respiratory diseases
CPT/HCPCS: 99285; 36415; 94640 ×2; 95816; 93005; 93306; 97161; 97165; 92523; 80061; 80053 ×2; 84443; 83735; 84100; 84484; 85025; 85610; 85730; 71046; 93880; 70450; 70551; G0378 ×2; J7512 ×2

== ENCOUNTER → 2019-10-10 | Outpatient (CLI) | payer MEDICARE, BC | END | disposition home or self-care (01) | LOC: CPPFTMAIN 10:08 | PROVIDERS: ATTEND Internal Medicine Critical Care Medicine | DX: J44.9 Chronic obstructive pulmonary disease, unspecified (principal); G70.9 Myoneural disorder, unspecified | CPT/HCPCS: 94060; 94726; 94729 ==

== ENCOUNTER → 2019-11-05 | Outpatient (CLI) | payer MEDICARE, BC ==
--- NOTE | 2019-11-07 15:31 | CT ---
EXAMINATION TYPE: CT chest w con DATE OF EXAM: 11/05/2019 COMPARISON: Outside CT 04/08/2019 HISTORY: 74-year-old male R91.1 Lung nodule TECHNIQUE: Contiguous axial scanning of the chest after the administration of 100 mL of Isovue 300. Coronal/sagittal reconstructions performed. CT DLP: 440.8mGycm. Automatic exposure control utilized for a dose reduction. FINDINGS: 1.5 cm nodule of the left lobe of thyroid gland is unchanged. Heart normal size without pericardial effusion. Scattered three-vessel coronary artery calcifications are present. Ectatic ascending aorta and 3.6 cm. Bovine configuration to the aortic arch. Moderate bilateral gynecomastia. No thoracic lymphadenopathy by CT size criteria. Some strandy subpleural scarring along the periphery of the right upper lobe is unchanged. 7 mm subpleural pulmonary nodule posteromedial left lower lobe is unchanged for 7 months. Tiny 2 mm subpleural pulmonary nodule posterior left lower lobe, axial image 40 is unchanged. 7 mm inferior lingular pulmonary nodule, axial image 36 is unchanged. No new or enlarging pulmonary nodule is seen. No consolidation or pleural effusion. Tiny hiatal hernia. Visualized upper abdomen otherwise shows cholecystectomy clips and a hilar splenu le. 1.2 cm cortical hypodensity from the upper pole of the left kidney is unchanged for 7 months sugg esting a benign cortical cyst. Larger benign 2.9 cm cyst lateral right kidney and stable probable par apelvic cyst measuring 3.8 cm in the left kidney. Mild scattered diverticular change throughout the c olon. Moderate atherosclerotic calcifications throughout the SMA. Bones: Mild degenerative disc disease throughout. No osseous destructive process. IMPRESSION: 1. CAD with three vessel coronary artery calcifications. 2. A few pulmonary nodules measuring up to 7 mm, unchanged for seven months. Continued surveillance i s recommended in 1 year. 3. The 1.5 cm left thyroid nodule is redemonstrated. Thyroid ultrasound to further evaluate if not al ready performed.
== END | disposition home or self-care (01) ==
LOC: RADCTMAIN 10:14
PROVIDERS: ATTEND Internal Medicine Critical Care Medicine
DX: R91.1 Solitary pulmonary nodule (principal); I25.10 Atherosclerotic heart disease of native coronary artery without angina pectoris; E04.1 Nontoxic single thyroid nodule; Z88.1 Allergy status to other antibiotic agents; Z88.0 Allergy status to penicillin
CPT/HCPCS: 82565; 84520; 71260; 36415; Q9967

== ENCOUNTER 2020-04-12 14:47 | Emergency (ER) | payer MEDICARE, BC ==
[2020-04-12 15:03] VITALS: TEMP 97
--- NOTE | 2020-04-12 15:11 | ED ---
General Adult HPI - General Chief complaint: Recheck/Abnormal Lab/Rx Stated complaint: headache Time Seen by Provider: 04/12/20 15:10 Source: patient Mode of arrival: ambulatory Limitations: no limitations - History of Present Illness Initial comments: Patient presents the ED with his for evaluation. Patient states that he awoke yesterday morning with right posterior neck/lower head pain. Patient states that he thought that maybe he "slept the wrong way". Patient states that his pain has become worse today, and he states that his pain is now bilateral in his posterior neck/lower head. Patient stated his pain is worse when he turns his head from [id number]. Patient states that he took a dose of Motrin about 4 hours ago today without much relief. Patient denies known trauma or injury. Patient denies sudden onset of severe headache, LOC, focal numbness/weakness/neuro deficit, visual changes, speech difficulty, fever or chills, sore throat, cough or cold symptoms, chest pain, dyspnea, dizziness, abdominal pain, nausea or vomiting, or any other symptoms or complaints. Patient denies having a history of headache disorder. - Related Data Home Medications Medication Instructions Recorded Confirmed Atorvastatin Calcium [Lipitor] 80 mg PO DAILY 08/02/16 08/15/19 Budesonide/Formoterol Fumarate 2 puff INHALATION RT-BID 08/02/16 08/15/19 [Symbicort 160-4.5 Mcg Inhaler] amLODIPine BESYLATE [Norvasc] 5 mg PO BID 08/02/16 08/15/19 metFORMIN HCL 1,000 mg PO BID 08/02/16 08/15/19 Albuterol Nebulized [Ventolin 2.5 mg INHALATION RT-QID PRN 02/19/19 08/15/19 Nebulized] Apixaban [Eliquis] 5 mg PO BID 02/19/19 08/15/19 Bicalutamide [Casodex] 50 mg PO DAILY 02/19/19 08/15/19 Losartan/Hydrochlorothiazide 1 tab PO DAILY 02/19/19 08/15/19 [Losartan-Hctz 100-12.5 mg Tab] Montelukast [Singulair] 10 mg PO HS 02/19/19 08/15/19 Pantoprazole Sodium [Protonix] 40 mg PO DAILY 02/19/19 08/15/19 Tiotropium 18 Mcg/Puff [Spiriva] 1 cap INHALATION RT-HS 02/19/19 08/15/19 Betamethasone Valerate [Luxiq 1 applic TOPICAL BID 08/15/19 08/15/19 0.01%] Calcium Carbonate/Vitamin D3 1 tab PO DAILY 08/15/19 08/15/19 [Calcium 600-Vit D3 400 Tablet] Escitalopram [Lexapro] 10 mg PO DAILY 08/15/19 08/15/19 Tamsulosin [Flomax] 0.4 mg PO HS 08/15/19 08/15/19 V-Go 40 0.01 units SQ-PUMP CONTINUOUS 08/15/19 08/15/19 hydrOXYzine HCL 10 - 20 mg PO QID 08/15/19 08/15/19 predniSONE 10 mg PO BID 08/15/19 08/15/19 Aspirin [Adult Low Dose Aspirin EC] 81 mg PO DAILY 08/16/19 08/16/19 Atorvastatin [Lipitor] 80 mg PO HS 08/16/19 08/16/19 Mepolizumab [Nucala] 100 mg SQ Q28D 08/16/19 08/16/19 Previous Rx's Medication Instructions Recorded Cyclobenzaprine [Flexeril] 10 mg PO TID PRN #12 tablet 04/12/20 Allergies Allergy/AdvReac Type Severity Reaction Status Date / Time amoxicillin [From Augmentin] Allergy Vomiting Verified 04/12/20 15:02 clavulanic acid Allergy Vomiting Verified 04/12/20 15:02 [From Augmentin] Iodine and Iodide Containing Allergy Rash/Hives Verified 04/12/20 15:02 Produc Quinolones Allergy Unknown Verified 04/12/20 15:02 Review of Systems ROS Statement: Those systems with pertinent positive or pertinent negative responses have been documented in the HPI. ROS Other: All systems not noted in ROS Statement are negative. Past Medical History Past Medical History: Asthma, Diabetes Mellitus, Eye Disorder, Hyperlipidemia, Hypertension, Syncope Additional Past Medical History / Comment(s): IDDM type II-insulin pump, "silent" [place] in the 1979's per EKG, syncopy x2 in 2016, L eye macular pucker- repaired, malaria History of Any Multi-Drug Resistant Organisms: None Reported Past Surgical History: No Surgical Hx Reported, Cholecystectomy Additional Past Surgical History / Comment(s): L eye cataract removed, L eye laser sx, L eye macular pucker surgically repaired, colonoscopy-normal. Past Anesthesia/Blood Transfusion Reactions: No Reported Reaction Past Psychological History: No Psychological Hx Reported Smoking Status: Former smoker Past Alcohol Use History: Rare Past Drug Use History: None Reported - Past Family History Father Family Medical History: Diabetes Mellitus Additional Family Medical History / Comment(s): Father at the age of 73yrs. Mother Family Medical History: Asthma, COPD, Diabetes Mellitus Additional Family Medical History / Comment(s): Mother at the age of 68yrs. General Exam Limitations: no limitations General appearance: alert, in no apparent distress Head exam: Present: atraumatic, normocephalic Eye exam: Present: normal appearance, PERRL, EOMI ENT exam: Present: normal oropharynx, mucous membranes moist Neck exam: Present: normal inspection, other (Patient has limited range of motion turning his head from side to side). Absent: tenderness Respiratory exam: Present: normal lung sounds bilaterally. Absent: respiratory distress, wheezes, rales, rhonchi Cardiovascular Exam: Present: regular rate, normal rhythm, normal heart sounds, other (Normal radial pulses bilaterally) GI/Abdominal exam: Present: soft. Absent: distended, tenderness Extremities exam: Present: full ROM. Absent: pedal edema Neurological exam: Present: alert, oriented X3, CN II-XII intact. Absent: motor sensory deficit Psychiatric exam: Present: normal affect, normal mood Skin exam: Present: warm, dry, intact, normal color Course Vital Signs 04/12/20 04/12/20 04/12/20 14:58 15:56 17:13 Temperature 97 F L Pulse Rate 80 79 79 Respiratory 18 18 16 Rate Blood Pressure 236/106 217/113 152/86 O2 Sat by Pulse 99 97 99 Oximetry - Reevaluation(s) Reevaluation #1: 04/12/20 17:15 Patient states his pain has improved with ED treatment, and he denies development of any new pain or symptoms while in the ED. Patient's blood pressure has improved significantly. Patient and are aware the patient's imaging reports, and patient feels comfortable going home with his at this time. Patient was counseled about headaches and neck pain/strains. Patient was clearly explained return and follow-up instructions, and he feels comfortable with this plan. Patient was instructed to follow up closely with his primary care provider. Medical Decision Making - Medical Decision Making Patient denies head trauma or injury, sudden onset of headache, fever or chills, or focal neurological deficit. Patient has a normal neurological exam. Patient's head and cervical spine CTs are fairly unremarkable. Patient reports that his pain is worse when he turns his head from side to side, and I suspect that his pain is likely muscular in etiology. I do not suspect an emergent medical condition. Patient was provided with a prescription for Flexeril, and he was instructed to follow up closely with his primary care provider. Patient was clearly explained return and follow-up instructions, and he was instructed to have a low threshold for return to the ED. Patient feels comfortable with this plan. - Radiology Data Radiology results: report reviewed (Noncontrast CT head and cervical spine are negative except for mild to moderate spondylosis) Disposition Clinical Impression: Headache, Cervical strain, acute Disposition: HOME SELF-CARE Condition: Stable Instructions (If sedation given, give patient instructions): Cervical Strain (ED), Acute Headache (ED) Additional Instructions: Return to the ER immediately should you develop new or worsening pain, a fever, numbness or weakness, shortness of breath, vomiting, feeling dizzy or faint, or new or worsening symptoms. Follow up closely with your primary care provider. Prescriptions: Cyclobenzaprine [Flexeril] 10 mg PO TID PRN #12 tablet PRN Reason: Pain Is patient prescribed a controlled substance at d/c from ED?: No Referrals: Tamanna Hernandes MD [Primary Care Provider] - 1-2 days Time of Disposition: 17:16
[2020-04-12] MEDS ORDERED: HYDROmorphone 1 MG/ML 1 ML SYRINGE IM STA (15:16)
[2020-04-12 15:57] VITALS: PULSE 79
--- NOTE | 2020-04-12 16:04 | CT ---
EXAMINATION TYPE: CT brain [place] wo con DATE OF EXAM: 04/12/2020 COMPARISON: 08/15/2019. HISTORY: Headache and Neck pain, no injury CT DLP: 1464.1 mGycm Automated exposure control for dose reduction was used. TECHNIQUE: CT scan of the head and cervical spine are performed without contrast. FINDINGS: There is no acute intracranial hemorrhage, mass effect, or midline shift identified. The ventricles and sulci are within normal limits in size. The globes are intact and the visualized sin uses are clear. Cervical spine is visualized in its entirety from C1 through upper thoracic levels and demonstrates s atisfactory alignment without evidence of acute fracture or dislocation. There is multilevel mild to moderate cervical spondylosis. Prevertebral soft tissue appears within normal limits. The C1-C2 art iculation is unremarkable. IMPRESSION: 1. There is no acute fracture or dislocation evident in the cervical spine. 2. No acute intracranial hemorrhage, mass effect, or midline shift is seen. 3. Mild to moderate cervical spondylosis.
[2020-04-12 17:16] VITALS: BP 152/86; RESP 16
== END 2020-04-12 17:13 | disposition home or self-care (01) ==
LOC: EC 14:47
DX: S16.1XXA Strain of muscle, fascia and tendon at neck level, initial encounter (principal); R51.9 Headache, unspecified; J45.909 Unspecified asthma, uncomplicated; E11.9 Type 2 diabetes mellitus without complications; E78.5 Hyperlipidemia, unspecified; I10 Essential (primary) hypertension; Z79.51 Long term (current) use of inhaled steroids; I25.2 Old myocardial infarction; Z79.82 Long term (current) use of aspirin; Z79.899 Other long term (current) drug therapy; Z96.41 Presence of insulin pump (external) (internal); Z87.891 Personal history of nicotine dependence; Z88.0 Allergy status to penicillin; Z88.1 Allergy status to other antibiotic agents; Z88.8 Allergy status to other drugs, medicaments and biological substances; Z91.041 Radiographic dye allergy status; Z90.49 Acquired absence of other specified parts of digestive tract; Z98.42 Cataract extraction status, left eye; X50.1XXA Overexertion from prolonged static or awkward postures, initial encounter
CPT/HCPCS: 72125; 70450; 99284; 96372; J1170

== ENCOUNTER → 2020-10-15 | Outpatient (CLI) | payer MEDICARE, BC ==
--- NOTE | 2020-10-15 15:37 | US ---
EXAMINATION TYPE: US kidneys/renal and bladder DATE OF EXAM: 10/15/2020 COMPARISON: NONE CLINICAL HISTORY: R80.1 persistent protein urea unspecified. EXAM MEASUREMENTS: Right Kidney: 12.7 x 5.1 x 4.7 cm Left Kidney: 13.7 x 5.3 x 6.0 cm Right Kidney: 3.7 x 3.9 x 3.2cm cyst Left Kidney: 2 probable cysts measuring 3.5 x 4.5 x 4.0cm, and 8.5 x 5.4 x 9.5cm Bladder: wnl There is no evidence for hydronephrosis at this point in time. No nephrolithiasis is seen. No rina s are identified. IMPRESSION: Bilateral renal cysts.
== END | disposition home or self-care (01) ==
LOC: RADUSWWP 14:49
DX: N28.1 Cyst of kidney, acquired (principal)
CPT/HCPCS: 76770

== ENCOUNTER 2021-03-16 05:51 | Inpatient (IN) | payer MEDICARE, BC ==
[2021-03-16] MEDS ORDERED: ASPIRIN 81 MG PO STA (06:21)
--- NOTE | 2021-03-16 06:30 | ED ---
General Adult HPI - General Source: patient Mode of arrival: ambulatory Limitations: no limitations <Pedro Zuniga - Last Filed: 03/16/21 07:16> <Justino William - Last Filed: 03/17/21 03:51> - General Chief complaint: Chest Pain Stated complaint: Chest pain, SOB Time Seen by Provider: 03/16/21 06:04 - History of Present Illness Initial comments: 75-year-old male with a past medical history of asthma, diabetes mellitus, hyperlipidemia, hypertension presents to the emergency room for a chief complaint of chest pain. Patient states he has 8 out of 10 chest pain radiating to his back and shoulder. Patient states he started to have some left chest pain late S night and then around 3 AM this morning the pain concentrated in his chest. No shortness of breath nausea or diaphoresis. Patient does not have any stents but does have a history of "silent [place]". (Pedro Zuniga) - Related Data Home Medications Medication Instructions Recorded Confirmed Atorvastatin Calcium [Lipitor] 80 mg PO DAILY 08/02/16 03/16/21 metFORMIN HCL [Glucophage] 1,000 mg PO BID 08/02/16 03/16/21 Albuterol Nebulized [Ventolin 2.5 mg INHALATION RT-QID PRN 02/19/19 03/16/21 Nebulized] Bicalutamide [Casodex] 50 mg PO DAILY 02/19/19 03/16/21 Losartan/Hydrochlorothiazide 1 tab PO DAILY 02/19/19 03/16/21 [Losartan-Hctz 100-12.5 mg Tab] Montelukast [Singulair] 10 mg PO HS 02/19/19 03/16/21 Pantoprazole Sodium [Protonix] 40 mg PO DAILY 02/19/19 03/16/21 Tamsulosin [Flomax] 0.4 mg PO HS 08/15/19 03/16/21 hydrOXYzine HCL 10 - 20 mg PO DAILY PRN 08/15/19 03/16/21 Aspirin [Adult Low Dose Aspirin EC] 81 mg PO DAILY 08/16/19 03/16/21 Mepolizumab [Nucala] 100 mg SQ Q28D 08/16/19 03/16/21 Albuterol Inhaler [Ventolin Hfa 2 puff INHALATION RT-QID PRN 03/16/21 03/16/21 Inhaler] Empagliflozin [Jardiance] 25 mg PO DAILY 03/16/21 03/16/21 Fluticasone Propion/Salmeterol 1 puff INHALATION RT-BID 03/16/21 03/16/21 [Fluticasone-Salmeterol 250-50] Liraglutide [Victoza 3-Nelson] 1.8 mg SQ DAILY 03/16/21 03/16/21 Triamcinolone 0.1% Cream [Kenalog 1 applic TOPICAL BID PRN 03/16/21 03/16/21 0.1% Cream] V-Go 20 Pump 0.01 units SQ-PUMP CONTINUOUS 03/16/21 03/16/21 amLODIPine [Norvasc] 10 mg PO DAILY 03/16/21 03/16/21 Allergies Allergy/AdvReac Type Severity Reaction Status Date / Time amoxicillin [From Augmentin] Allergy Vomiting Verified 03/16/21 10:58 clavulanic acid Allergy Vomiting Verified 03/16/21 10:58 [From Augmentin] Iodine and Iodide Containing Allergy Rash/Hives Verified 03/16/21 10:58 Produc Quinolones Allergy Unknown Verified 03/16/21 10:58 Review of Systems ROS Other: All systems not noted in ROS Statement are negative. <Pedro Zuniga - Last Filed: 03/16/21 07:16> ROS Other: All systems not noted in ROS Statement are negative. <Justino William - Last Filed: 03/17/21 03:51> ROS Statement: Those systems with pertinent positive or pertinent negative responses have been documented in the HPI. Past Medical History Past Medical History: Asthma, Diabetes Mellitus, Eye Disorder, Hyperlipidemia, Hypertension, Syncope Additional Past Medical History / Comment(s): IDDM type II-insulin pump, "silent" [place] in the per EKG, syncopy x2 in 2016, L eye macular pucker- repaired, malaria History of Any Multi-Drug Resistant Organisms: None Reported Past Surgical History: No Surgical Hx Reported, Cholecystectomy Additional Past Surgical History / Comment(s): L eye cataract removed, L eye laser sx, L eye macular pucker surgically repaired, colonoscopy-normal. Past Anesthesia/Blood Transfusion Reactions: No Reported Reaction Past Psychological History: No Psychological Hx Reported Smoking Status: Former smoker Past Alcohol Use History: Rare Past Drug Use History: None Reported - Past Family History Father Family Medical History: Diabetes Mellitus Additional Family Medical History / Comment(s): Father at the age of 73yrs. Mother Family Medical History: Asthma, COPD, Diabetes Mellitus Additional Family Medical History / Comment(s): Mother at the age of 68yrs. <Pedro Zuniga - Last Filed: 03/16/21 07:16> General Exam Limitations: no limitations General appearance: alert, in no apparent distress Head exam: Present: atraumatic Eye exam: Present: normal appearance, PERRL, EOMI ENT exam: Present: normal exam, mucous membranes moist Respiratory exam: Present: normal lung sounds bilaterally. Absent: respiratory distress, wheezes Cardiovascular Exam: Present: regular rate, normal rhythm, normal heart sounds GI/Abdominal exam: Present: soft, normal bowel sounds. Absent: distended, tenderness Neurological exam: Present: alert <Pedro Zuniga - Last Filed: 03/16/21 07:16> Course <Pedro Zuniga - Last Filed: 03/16/21 07:16> Vital Signs 03/16/21 03/16/21 03/16/21 05:54 06:29 06:30 Temperature 98.9 F Pulse Rate 62 67 67 Respiratory 18 18 18 Rate Blood Pressure 103/65 137/57 137/57 O2 Sat by Pulse 99 98 98 Oximetry 03/16/21 03/16/21 03/16/21 06:32 06:35 06:40 Temperature Pulse Rate 68 66 68 Respiratory 18 18 18 Rate Blood Pressure 114/72 110/64 95/68 O2 Sat by Pulse 95 96 96 Oximetry 03/16/21 03/16/21 03/16/21 06:45 06:47 06:50 Temperature Pulse Rate 62 65 Respiratory 18 18 Rate Blood Pressure 84/57 110/63 112/69 O2 Sat by Pulse 97 94 L Oximetry 03/16/21 06:55 Temperature Pulse Rate 61 Respiratory 18 Rate Blood Pressure 100/61 O2 Sat by Pulse 95 Oximetry - Reevaluation(s) Reevaluation #1: 03/16/21 06:25 stemi called (Pedro Zuniga) Reevaluation #2: 03/16/21 06:37 Pt now pain free (Nadia,Pedro P) EKG Findings - EKG Comments: EKG Findings:: STEMI noted, elevation in leads II, III, aVF with T-wave inversions in lateral leads. Ventricular rate 65, qtc 542. rpt EKG at 637 <Pedro Zuniga - Last Filed: 03/16/21 07:16> Medical Decision Making - Lab Data Result diagrams: 03/16/21 06:25 03/16/21 06:25 <Pedro Zuniga - Last Filed: 03/16/21 07:16> - Lab Data Result diagrams: 03/16/21 06:25 03/16/21 06:25 <Justino William - Last Filed: 03/17/21 03:51> - Medical Decision Making Vitals are stable. The patient presents with STEMI, Dr William saw the patient Review Coordinator activated. Aspirin given, lab work initiated. Pain did resolve however repeat EKG continued to show ST elevations. Dr. gonzalez patient at bedside. Patient taken to Review Coordinator. (Pedro Zuniga) Patient was seen and evaluated by physician medical assistant dermatology who showed me the ECG and I requested the Review Coordinator to be activated. I then went and performed history and physical and discussed the case with Dr. Gonzalez who stated that he would see the patient. When I saw the patient is stated that he was symptom-free. Dr. Gonzalez arrived saw the patient, and then the patient was immediately transferred to the Review Coordinator. (Justino William) - Lab Data Lab Results 03/16/21 03/16/21 03/16/21 Range/Units 06:25 06:25 06:25 WBC 14.9 H (3.8-10.6) k/uL RBC 3.94 L (4.30-5.90) m/uL Hgb 12.0 L (13.0-17.5) gm/dL Hct 36.6 L (39.0-53.0) % MCV 92.7 (80.0-100.0) fL MCH 30.4 (25.0-35.0) pg MCHC 32.8 (31.0-37.0) g/dL RDW 13.8 (11.5-15.5) % Plt Count 248 (150-450) k/uL MPV 9.2 Neutrophils % 81 % Lymphocytes % 8 % Monocytes % 8 % Eosinophils % 1 % Basophils % 0 % Neutrophils # 12.1 H (1.3-7.7) k/uL Lymphocytes # 1.2 (1.0-4.8) k/uL Monocytes # 1.2 H (0-1.0) k/uL Eosinophils # 0.1 (0-0.7) k/uL Basophils # 0.0 (0-0.2) k/uL PT 12.1 H (9.0-12.0) sec INR 1.2 H (<1.2) APTT 26.4 (22.0-30.0) sec Sodium 133 L (137-145) mmol/L Potassium 3.7 (3.5-5.1) mmol/L Chloride 101 (98-107) mmol/L Carbon Dioxide 25 (22-30) mmol/L Anion Gap 7 mmol/L BUN 29 H (9-20) mg/dL Creatinine 1.56 H (0.66-1.25) mg/dL Est GFR (CKD-EPI)AfAm 50 (>60 ml/min/1.73 sqM) Est GFR (CKD-EPI)NonAf 43 (>60 ml/min/1.73 sqM) Glucose 307 H (74-99) mg/dL Calcium 8.3 L (8.4-10.2) mg/dL Magnesium 1.2 L (1.6-2.3) mg/dL Total Bilirubin 1.9 H (0.2-1.3) mg/dL AST 350 H (17-59) U/L ALT 65 H (4-49) U/L Alkaline Phosphatase 67 (38-126) U/L Troponin I (0.000-0.034) ng/mL Total Protein 6.2 L (6.3-8.2) g/dL Albumin 3.0 L (3.5-5.0) g/dL 03/16/21 Range/Units 06:25 WBC (3.8-10.6) k/uL RBC (4.30-5.90) m/uL Hgb (13.0-17.5) gm/dL Hct (39.0-53.0) % MCV (80.0-100.0) fL MCH (25.0-35.0) pg MCHC (31.0-37.0) g/dL RDW (11.5-15.5) % Plt Count (150-450) k/uL MPV Neutrophils % % Lymphocytes % % Monocytes % % Eosinophils % % Basophils % % Neutrophils # (1.3-7.7) k/uL Lymphocytes # (1.0-4.8) k/uL Monocytes # (0-1.0) k/uL Eosinophils # (0-0.7) k/uL Basophils # (0-0.2) k/uL PT (9.0-12.0) sec INR (<1.2) APTT (22.0-30.0) sec Sodium (137-145) mmol/L Potassium (3.5-5.1) mmol/L Chloride (98-107) mmol/L Carbon Dioxide (22-30) mmol/L Anion Gap mmol/L BUN (9-20) mg/dL Creatinine (0.66-1.25) mg/dL Est GFR (CKD-EPI)AfAm (>60 ml/min/1.73 sqM) Est GFR (CKD-EPI)NonAf (>60 ml/min/1.73 sqM) Glucose (74-99) mg/dL Calcium (8.4-10.2) mg/dL Magnesium (1.6-2.3) mg/dL Total Bilirubin (0.2-1.3) mg/dL AST (17-59) U/L ALT (4-49) U/L Alkaline Phosphatase (38-126) U/L Troponin I 144.000 H* (0.000-0.034) ng/mL Total Protein (6.3-8.2) g/dL Albumin (3.5-5.0) g/dL Critical Care Time Critical Care Time: Yes <Pedro Zuniga - Last Filed: 03/16/21 07:16> Critical Care Time: 83 minutes spent caring for this patient with critical care time with consultation with several specialists, several serial re-evaluations, repeat EKGs, review of old documentation (Pedro Zuniga) Disposition Is patient prescribed a controlled substance at d/c from ED?: No Time of Disposition: 07:45 <Pedro Zuniga - Last Filed: 03/16/21 07:16> <Justino William - Last Filed: 03/17/21 03:51> Clinical Impression: ST elevation myocardial infarction (STEMI) Disposition: ADMITTED IP TO THIS HOSP Condition: Critical
[2021-03-16] MEDS ORDERED: MORPHINE SULFATE 4 MG/ML SYRINGE IVP STA (06:31)
[2021-03-16 06:45] LABS: Basophils % (A) 0 %; Eosinophils # (A) 0.1 k/uL (0-0.7); Eosinophils % (A) 1 %; HCT 36.6 % (39.0-53.0); Lymphocytes # (A) 1.2 k/uL (1.0-4.8); Lymphocytes % (A) 8 %; MCH 30.4 pg (25.0-35.0); MCHC 32.8 g/dL (31.0-37.0); MCV 92.7 fL (80.0-100.0); Mean Platelet Volume 9.2; Monocytes # (A) 1.2 k/uL (0-1.0); Monocytes % (A) 8 %; Neutrophils # (A) 12.1 k/uL (1.3-7.7); Neutrophils % (A) 81 %; Platelet Count 248 k/uL (150-450); RBC 3.94 m/uL (4.30-5.90); RDW 13.8 % (11.5-15.5); WBC 14.9 k/uL (3.8-10.6)
[2021-03-16] MEDS ORDERED: HEPARIN SODIUM 1,000 UN/ML (10ML VL) IV PRN (06:50)
[2021-03-16] MEDS ORDERED: HEPARIN SODIUM 1,000 UN/ML (10ML VL) IV ONE (06:50)
[2021-03-16 06:53] LABS: INR 1.2 (<1.2); Partial Thromboplastin Time 26.4 sec (22.0-30.0); Prothrombin Time 12.1 sec (9.0-12.0)
[2021-03-16 06:55] LABS: Calcium 8.3 mg/dL (8.4-10.2); Magnesium 1.2 mg/dL (1.6-2.3); Potassium 3.7 mmol/L (3.5-5.1); Total Bilirubin 1.9 mg/dL (0.2-1.3); Total Protein 6.2 g/dL (6.3-8.2)
[2021-03-16] MEDS ORDERED: VERAPAMIL 2.5 MG/ML 2 ML AMP ONE (06:59)
[2021-03-16] MEDS ORDERED: LIDOCAINE 1% INJ 10MG/ML (20 ML MDV) ONE (06:59)
[2021-03-16] MEDS ORDERED: HEPARIN SOD,PORK IN 0.45% NACL 25,000 UNIT in 0.45% NACL 1 250ML.BAG IV SCH (07:00)
[2021-03-16] MEDS ORDERED: SODIUM CHLORIDE 0.9% 500 ML 500 ML IV ONE (07:02)
[2021-03-16] MEDS ORDERED: SODIUM CHLORIDE 0.9% 1,000 ML IV ONE (07:02)
--- NOTE | 2021-03-16 07:07 | XR ---
EXAMINATION TYPE: XR chest 1V portable DATE OF EXAM: 03/16/2021 COMPARISON: Chest x-ray August 15, 2019. CT chest November 05, 2019 HISTORY: Chest pain. TECHNIQUE: Single frontal view of the chest is obtained. FINDINGS: Diminished inspiration on current study. There is no suspicious new focal air space opacit y, pleural effusion, or pneumothorax seen. The cardiac silhouette size is mildly enlarged. The oss eous structures are intact. Overlying EKG leads redemonstrated. IMPRESSION: Mild cardiomegaly without acute pulmonary process.
[2021-03-16] MEDS ORDERED: methylPREDNISolone SOD SUCCI 125 MG/2 ML VIAL ONE (07:10)
[2021-03-16] MEDS ORDERED: fentaNYL (PF) 50 MCG/ML 2 ML AMP ONE (07:12)
[2021-03-16] MEDS ORDERED: methylPREDNISolone SOD SUCCI 125 MG/2 ML VIAL IV ONE (07:13)
[2021-03-16] MEDS ORDERED: fentaNYL (PF) 50 MCG/ML 2 ML AMP IV ONE (07:13)
[2021-03-16] MEDS ORDERED: LIDOCAINE 1% INJ 10MG/ML (20 ML MDV) SQ ONE (07:14)
[2021-03-16] MEDS ORDERED: HEPARIN SODIUM 1,000 UN/ML (10ML VL) ONE (07:19)
[2021-03-16] MEDS: HEPARIN SODIUM 1,000 UN/ML (10ML VL) IV ONE ×3 (07:22→08:12)
[2021-03-16] MEDS ORDERED: PRASUGREL 10 MG TAB ONE (07:23)
[2021-03-16] MEDS ORDERED: PRASUGREL 10 MG TAB PO ONE (07:26)
[2021-03-16] MEDS ORDERED: IOPAMIDOL-370 125ML BTL INJ ONE ×2 (07:50)
[2021-03-16] MEDS ORDERED: niCARdipine 25 MG/10 ML VIAL ONE (08:18)
[2021-03-16] MEDS ORDERED: IOPAMIDOL-370 100ML BTL INJ ONE (08:27)
[2021-03-16] MEDS ORDERED: ATROPINE SULFATE 0.1 MG/ML 10ML SYRINGE IV PRN (08:33)
[2021-03-16] MEDS ORDERED: ZOLPIDEM 5 MG TAB PO PRN (08:33)
[2021-03-16] MEDS ORDERED: RX INFO: IV CONTRAST WAS GIVEN 1 EACH MISC MISCELLANE PRN (08:33)
[2021-03-16] MEDS ORDERED: MAG HYDROX/AL HYDROX/SIMETH 30 ML CUP PO PRN (08:33)
[2021-03-16] MEDS ORDERED: NITROGLYCERIN SL TABS 0.4 MG TAB SUBLINGUAL PRN (08:33)
[2021-03-16] MEDS ORDERED: SODIUM CHLORIDE 0.9% 1,000 ML IV SCH (08:45)
[2021-03-16 08:55] LABS: Glucose,Whole Blood 304 mg/dL (75-99)
[2021-03-16 09:29] VITALS: TEMP 97.8
[2021-03-16] MEDS ORDERED: Magnesium Replacement Protocol 1 EACH MISC MISCELLANE PRN (09:30)
[2021-03-16] MEDS ORDERED: Potassium Replacement Protocol 1 EACH MISC MISCELLANE PRN (09:32)
[2021-03-16] MEDS: MAGNESIUM SULFATE-D5W PMX 1 GM in DEXTROSE/WATER 1 100ML.BAG IVPB SCH ×3 (09:51→13:33)
[2021-03-16] MEDS ORDERED: POTASSIUM BICARBONATE/CIT AC 20 MEQ TABLET.EFF NG-TUBE SCH (10:00)
--- NOTE | 2021-03-16 11:00 | CONS ---
CONSULTATION Mr. Hyatt is a 75-year-old male with a known history of diabetes who woke up with chest discomfort radiating to the arm associated with dyspnea. He has not been feeling well for the last few days. He came into the emergency room and his EKG showed ST-segment elevation inferiorly with QS pattern and T- wave inversion in the lateral precordial leads. At the time of my evaluation in the emergency room he is pain-free. The patient has no prior documented history of coronary artery disease. He has no history of congestive heart failure. His activity level has been stable on a regular basis. He denies any PND or orthopnea. He denies any peripheral edema. His coronary risk factors are positive for the diabetes. He used to smoke cigars. He has hypertension and hyperlipidemia. His medication included aspirin, Eliquis 5 mg twice a day, Lipitor 80 mg daily, Flomax, Spiriva, Norvasc 5 mg twice a day, Glucophage, prednisone, Singulair, losartan/HCT 100/12.5 mg daily. REVIEW OF SYSTEMS: RESPIRATORY SYSTEM: He has dyspnea on exertion, history of obstructive chronic obstructive lung disease. GI SYSTEM: No recent GI bleeding. No peptic ulcer disease. SYSTEM: No dysuria or hematuria. NERVOUS SYSTEM: No stroke or seizure. PHYSICAL EXAMINATION: He is a 75-year-old male, alert, oriented, in no apparent distress. Blood pressure running in the 110s over 60 with a heart rate in 60s. He had a lower blood pressure earlier in the emergency room. HEAD: Normocephalic. EYES: Sclerae anicteric. NECK: Good carotid upstroke. No bruit. No jugular venous distention. LUNGS: Clear to auscultation. HEART: Regular rate and rhythm. S1, S2. No S3. Extrasystole and a systolic murmur. No diastolic murmur. ABDOMEN: Soft, nontender. Positive bowel sounds. No organomegaly. EXTREMITIES: No edema. Decreased distal pulses. LAB DATA: BUN and creatinine of 29 and 1.56, which is worse compared to October of this year. His hemoglobin is 12.0, white blood cells of 14.9. His AST is 350, ALT of 65. His total bilirubin is 1.9, which is worse than it was in October as well. His EKG revealed a sinus mechanism with ST elevation inferiorly with T-wave inversion involving the inferolateral leads with evidence of intraventricular conduction delay and evidence of second-degree AV block. IMPRESSION: 1. Acute myocardial infarction in the inferior leads. 2. History of diabetes. 3. Hypertension. 4. Hyperlipidemia. 5. Worsening renal function. 6. Elevated liver function tests. RECOMMENDATIONS: In view of his presentation, I have recommended proceeding with coronary angiography to assess his status and guide his treatment. The rationale behind the procedure was discussed with the patient, who is in full understanding and agreement. Thank you for this consult. Will follow with you. MARBELLA / IJN: [id number] / BROCK
--- NOTE | 2021-03-16 11:14 | CC ---
CARDIAC CATHETERIZATION REPORT CARDIAC CATHETERIZATION AND ANGIOPLASTY PROCEDURE NOTE: DATE OF SERVICE: 03/16/2021 Mr. Hyatt is a 75-year-old male with history of hypertension, hyperlipidemia and diabetes mellitus who presented with an episode of chest discomfort that woke him up from sleep. He has been feeling discomfort and arm pain for the last few days, worse early this morning, and came into the emergency room. He had evidence of QS pattern in the inferior leads with ST-segment elevation. His initial troponin was above 100 and he had evidence of renal and liver function abnormality. In view of his presentation, recommendation was made regarding cardiac catheterization. The procedure as well as its risks and complications were discussed with the patient, who was in full understanding and agreement. PROCEDURE DESCRIPTION: Patient was brought to the [employer] in a fasting, semi-sedated state after receiving fentanyl and Benadryl and achieving moderate conscious sedated state. Using Xylocaine anesthesia and Seldinger technique, a 6-Azerbaijani sheath was introduced in the right femoral artery. Selective right coronary angiography was performed using 6-Azerbaijani FR4 guiding catheter. After cannulating the right coronary ostium, attempts to advance a 0.014 balanced medium weight J-wire with the help of a Supercross microcatheter were unsuccessful. That wire was exchanged and a 0.014 Whisper J-wire was advanced and was unable to cross the lesion. At that point, the guiding catheter, the balloon were removed and a 6-Azerbaijani left Neelima diagnostic catheter was introduced and images of the left coronary system were obtained. Following that, the catheter was removed and a 6-Azerbaijani AL0.75 guiding catheter was introduced into the system. After cannulating the right coronary ostium using the Whisper J-wire and the microcatheter, the total occlusion of the proximal RCA was crossed and the wire was advanced distally. Subsequently the wire was exchanged through the microcatheter for a 0.014 balanced medium weight J-wire. After that, the microcatheter was removed and a 2.5 x 12 mm Trek balloon was advanced and multiple inflations to a maximum of 10 atmospheres were done. Following that, the balloon was removed and a 3.0 x 33 mm Xience Skypoint stent was deployed distally and post-dilated at 16 atmospheres. After removing the balloon, a 3.0 x 38 mm Xience Skypoint stent was deployed proximal to the first and one and post- dilated at 16 atmospheres. Following that, the balloon was removed and a 3.0 x 33 mm Xience Skypoint was deployed in the proximal segment and post-dilated at 16 atmospheres. Following that, there was evidence of no reflow distally. At that point, a 3.0 x 15 mm NC Trek balloon was advanced, and multiple inflations to a maximum of 12 atmospheres were done. Following that, the balloon was removed and the patient received intracoronary nicardipine as well as nitroglycerin, with improvement in the flow. At that point, the wire was withdrawn back into the guiding catheter. Images were obtained and repeated. Those images revealed stable successful stenting. At that point, the guiding catheter, the balloon and the guidewire were removed. The sheath was removed. Hemostasis was obtained with deployment of an Angio-Seal. There was no immediate complication. Of note, the patient received oral loading dose of Effient and he received a total of 7000 units of intravenous heparin. His ACT was followed. The patient had no chest discomfort at the end of the procedure. He had persistent ST- segment elevation. RESULTS: LEFT MAIN: This is a large-sized vessel bifurcating into left circumflex and left anterior descending coronary artery. Left main coronary artery has no evidence of high- grade stenosis. LEFT ANTERIOR DESCENDING ARTERY: This is a large-sized vessel reaching toward the apex. It tapers down in the distal third, giving rise to a large diagonal branch. The left anterior descending artery proximally at the takeoff of the diagonal branch has a tubular lesion of 40% to 50%. LEFT CIRCUMFLEX: This is a nondominant vessel giving rise to two obtuse marginal branches. The left circumflex and its branches have no evidence of obstructive coronary artery disease. RIGHT CORONARY ARTERY: The right coronary artery is totally occluded proximally with no antegrade flow. COLLATERALS: There is faint collateral from the left coronary system toward the right PDA and PLV. ANGIOPLASTY: Successful stenting of a long segment of total occlusion of the RCA involving the proximal mid and distal RCA with reduction of stenosis from 100% to 0% with a KRISTIE-2 flow at the and. There was evidence of myocardial blushing. CONCLUSION: 1. Acutely occluded RCA, which is the culprit lesion with successful stenting of that vessel. 2. Mild to moderate disease in the proximal LAD. 3. Left ventricular end-diastolic pressure 16 to 18 mmHg. RECOMMENDATIONS: Patient to contain aspirin, Effient and a statin. His renal function will be followed closely to make a decision regarding the addition of LAMONTE inhibitor. Depending on his rate, his beta alex will be ended. Those findings and recommendations were discussed with the patient and his family, who are in full understanding and agreement. Unfortunately the prognosis is guarded since the patient presented late in his myocardial infarction with a troponin above 100 on presentation. Those findings and recommendations were discussed with the patient his family, who are in full understanding and agreement. Duration of sedation was 74 minutes. MMODL / IJN: [id number] /
[2021-03-16 11:21] LABS: Glucose,Whole Blood 299 mg/dL (75-99)
--- NOTE | 2021-03-16 11:45 | PN ---
PROGRESS NOTE Mr. Hyatt presented with acute inferior ST-elevation ID, underwent stenting of RCA by Dr. Gonzalez. I saw him after arrival in the ICU. He is hemodynamically stable, resting comfortably. His right groin is clean and dry. Vitals are stable. Blood pressure is 108/70. Pulse rate is 56 per minute. No JVD. S1-S2 heard normally. No rub, murmur or gallop. Lungs are clear. Abdomen is soft, nontender. Lower extremities reveal normal pulses. No edema. Central nervous system is normal. Plan is to continue dual antiplatelet therapy, statins and a small dose of beta alex and losartan. Prognosis remains guarded. Echo has been ordered. Will continue to follow. MMODL / IJN: [id number] /
[2021-03-16] MEDS ORDERED: ALBUTEROL NEBULIZED 2.5 MG/3 ML INHALATION PRN (12:21)
[2021-03-16 12:54] VITALS: BMI 29.5
--- NOTE | 2021-03-16 13:00 | ECHOF ---
Referral Reason:mi MEASUREMENTS -------- HEIGHT: 175.3 cm WEIGHT: 90.7 kg BP: 127/92 RVIDd: 3.8 cm (< 3.3) IVSd: 1.8 cm (0.6 - 1.1) LVIDd: 4.6 cm (3.9 - 5.3) LVPWd: 1.5 cm (0.6 - 1.1) IVSs: 2.1 cm LVIDs: 4.2 cm LVPWs: 1.8 cm LAESV Index (A-L): 41.38 ml/m Ao Diam: 3.3 cm (2.0 - 3.7) AV Cusp: 2.1 cm (1.5 - 2.6) LA Diam: 4.5 cm (2.7 - 3.8) MV EXCURSION: 23.279 mm (> 18.000) MV EF SLOPE: 171 mm/s (70 - 150) EPSS: 0.5 cm RAP: 3.00 mmHg RVSP: 19.90 mmHg FINDINGS -------- This was a technically difficult study with suboptimal apical views. Patient is post cardiac catheterization and cannot be in left lateral position. The left ventricular size is normal. There is severe concentric left ventricular hypertrophy. Ove rall left ventricular systolic function is severely impaired with, an EF between 20 - 25 %. Basal l ateral LV wall motion is hypokinetic. Basal inferior LV wall motion is hypokinetic. Mid lateral LV wall motion is hypokinetic. Mid inferior LV wall motion is hypokinetic. Mid inferoseptal LV wall motion is hypokinetic. Apical lateral LV wall motion is hypokinetic. Apical inferior LV w all motion is hypokinetic. The right ventricle is mild to moderately enlarged. LA is moderately dilated 34-39 ml/m2 The right atrium was not well visualized. 5.0mg of Lumason was utilized for enhancement of images Interatrial and interventricular septum intact. The aortic valve is trileaflet and appears structurally normal. There is mild aortic valve sclerosi s. There is no evidence of aortic regurgitation. There is no evidence of aortic stenosis. Mild mitral annular calcification present. Mild mitral regurgitation is present. Moderate tricuspid regurgitation present. There is no evidence of pulmonary hypertension. The rig ht ventricular systolic pressure, as measured by Doppler, is 19.90mmHg. There is no pulmonic regurgitation present. The aortic root size is normal. IVC Not well visulized. There is no pericardial effusion. CONCLUSIONS -------- 1. The left ventricular size is normal. 2. There is severe concentric left ventricular hypertrophy. 3. Overall left ventricular systolic function is severely impaired with, an EF between 20 - 25 %. 4. Basal lateral LV wall motion is hypokinetic. 5. Basal inferior LV wall motion is hypokinetic. 6. Mid lateral LV wall motion is hypokinetic. 7. Mid inferior LV wall motion is hypokinetic. 8. Mid inferoseptal LV wall motion is hypokinetic. 9. Apical lateral LV wall motion is hypokinetic. 10. Apical inferior LV wall motion is hypokinetic. 11. The right ventricle is mild to moderately enlarged. 12. LA is moderately dilated 34-39 ml/m2 13. There is mild aortic valve sclerosis. 14. Mild mitral annular calcification present. 15. Mild mitral regurgitation is present. 16. Moderate tricuspid regurgitation present. JAZZ SINGER: Bess Grossman RDCS
[2021-03-16] MEDS ORDERED: INSULIN ASPART (NovoLOG) 100 UNIT/ML VIAL SQ ONE (13:17)
--- NOTE | 2021-03-16 13:51 | P.HPIM ---
History of Present Illness H&P Date: 03/16/21 This is a 75-year-old male with past medical history noted below presented to the emergency room with sudden onset chest pain that woke him up from his sleep this morning. Patient was evaluated in the ER and was noted to have acute STEMI with significantly elevated troponin level. Patient was taken immediately to the heart cath and underwent left heart catheterization with successful stent placement to RCA. Patient was admitted to the ICU for close monitoring. He is awake and alert right now. He denies any chest pain to me. He is known to have type 2 diabetes and had insulin pump that he is not sure what the rate on it and not sure how much she is getting with each bolus. The patient blood glucose was around 3:30 at the time of my evaluation. He just finished eating lunch. Review of Systems Review of system: 14 points review of systems were obtained and were negative except to what were mentioned in the HPI. Past Medical History Past Medical History: Asthma, Diabetes Mellitus, Eye Disorder, Hyperlipidemia, Hypertension, Syncope Additional Past Medical History / Comment(s): IDDM type II-insulin pump, "silent" [place] in the per EKG, syncopy x2 in 2016, L eye macular pucker-repaired, malaria History of Any Multi-Drug Resistant Organisms: None Reported Past Surgical History: No Surgical Hx Reported, Cholecystectomy Additional Past Surgical History / Comment(s): L eye cataract removed, L eye laser sx, L eye macular pucker surgically repaired, colonoscopy-normal. Past Anesthesia/Blood Transfusion Reactions: No Reported Reaction Date of Last Stent Placement:: 03/16/2101 Past Psychological History: No Psychological Hx Reported Smoking Status: Former smoker Past Alcohol Use History: Rare Past Drug Use History: None Reported - Past Family History Father Family Medical History: Diabetes Mellitus Additional Family Medical History / Comment(s): Father at the age of 73yrs. Mother Family Medical History: Asthma, COPD, Diabetes Mellitus Additional Family Medical History / Comment(s): Mother at the age of 68yrs. Medications and Allergies Home Medications Medication Instructions Recorded Confirmed Type Atorvastatin Calcium [Lipitor] 80 mg PO DAILY 08/02/16 03/16/21 History metFORMIN HCL [Glucophage] 1,000 mg PO BID 08/02/16 03/16/21 History Albuterol Nebulized [Ventolin 2.5 mg INHALATION RT-QID PRN 02/19/19 03/16/21 History Nebulized] Bicalutamide [Casodex] 50 mg PO DAILY 02/19/19 03/16/21 History Losartan/Hydrochlorothiazide 1 tab PO DAILY 02/19/19 03/16/21 History [Losartan-Hctz 100-12.5 mg Tab] Montelukast [Singulair] 10 mg PO HS 02/19/19 03/16/21 History Pantoprazole Sodium [Protonix] 40 mg PO DAILY 02/19/19 03/16/21 History Tamsulosin [Flomax] 0.4 mg PO HS 08/15/19 03/16/21 History hydrOXYzine HCL 10 - 20 mg PO DAILY PRN 08/15/19 03/16/21 History Aspirin [Adult Low Dose Aspirin EC] 81 mg PO DAILY 08/16/19 03/16/21 History Mepolizumab [Nucala] 100 mg SQ Q28D 08/16/19 03/16/21 History Albuterol Inhaler [Ventolin Hfa 2 puff INHALATION RT-QID PRN 03/16/21 03/16/21 History Inhaler] Empagliflozin [Jardiance] 25 mg PO DAILY 03/16/21 03/16/21 History Fluticasone Propion/Salmeterol 1 puff INHALATION RT-BID 03/16/21 03/16/21 History [Fluticasone-Salmeterol 250-50] Liraglutide [Victoza 3-Nelson] 1.8 mg SQ DAILY 03/16/21 03/16/21 History Triamcinolone 0.1% Cream [Kenalog 1 applic TOPICAL BID PRN 03/16/21 03/16/21 History 0.1% Cream] V-Go 20 Pump 0.01 units SQ-PUMP CONTINUOUS 03/16/21 03/16/21 History amLODIPine [Norvasc] 10 mg PO DAILY 03/16/21 03/16/21 History Allergies Allergy/AdvReac Type Severity Reaction Status Date / Time amoxicillin [From Augmentin] Allergy Vomiting Verified 03/16/21 10:58 clavulanic acid Allergy Vomiting Verified 03/16/21 10:58 [From Augmentin] Iodine and Iodide Containing Allergy Rash/Hives Verified 03/16/21 10:58 Produc Quinolones Allergy Unknown Verified 03/16/21 10:58 Physical Exam Vitals: Vital Signs Temp Pulse Resp BP Pulse Ox 03/16/21 13:11 90 03/16/21 13:02 85 03/16/21 13:00 92 19 150/99 94 L 03/16/21 12:00 93 20 129/94 97 03/16/21 11:00 85 14 127/92 95 03/16/21 10:00 74 14 127/92 90 L 03/16/21 09:20 56 L 18 97 03/16/21 09:10 97.8 F 53 L 15 95 03/16/21 09:04 54 L 14 105/82 03/16/21 07:00 62 18 101/77 96 03/16/21 06:55 61 18 100/61 95 03/16/21 06:50 65 18 112/69 03/16/21 06:47 62 18 110/63 94 L 03/16/21 06:45 84/57 97 03/16/21 06:40 68 18 95/68 96 03/16/21 06:35 66 18 110/64 96 03/16/21 06:32 68 18 114/72 95 03/16/21 06:30 67 18 137/57 98 03/16/21 06:29 67 18 137/57 98 03/16/21 05:54 98.9 F 62 18 103/65 99 Intake and Output 03/15/21 03/16/21 03/16/21 22:59 06:59 14:59 Intake Total 1075 Output Total 0 Balance 1075 Intake: IV 1075 Magnesium Sulfate-D5w Pmx 300 1 gm In Dextrose/Water 1 100ml.bag @ 100 mls/hr IVPB Q1H ОЛЬГА Rx#: [id number] Sodium Chloride 0.9% 1, 375 000 ml @ 75 mls/hr IV . [id number] ОЛЬГА Rx#:[id number] Output: Urine 0 Other: Voiding Method Urinal # Voids 0 Weight 90.718 kg 90.718 kg General: The patient is awake and alert, in no distress Eye: there is normal conjunctiva bilaterally. Neck: The neck is supple, there is no JVD. Cardiovascular: Normal S1-S2, no S3-S4, no murmurs. Respiratory: Lungs clear to auscultation bilaterally Gastrointestinal: Abdomen is soft, nontender Musculoskeletal: There is no pedal edema. Neurological:. Speech is normal. Skin: Skin is warm and dry Results CBC & Chem 7: 03/16/21 06:25 03/16/21 06:25 Labs: Abnormal Lab Results - Last 24 Hours (Table) 03/16/21 03/16/21 03/16/21 Range/Units 06:25 06:25 06:25 WBC 14.9 H (3.8-10.6) k/uL RBC 3.94 L (4.30-5.90) m/uL Hgb 12.0 L (13.0-17.5) gm/dL Hct 36.6 L (39.0-53.0) % Neutrophils # 12.1 H (1.3-7.7) k/uL Monocytes # 1.2 H (0-1.0) k/uL PT 12.1 H (9.0-12.0) sec INR 1.2 H (<1.2) Sodium 133 L (137-145) mmol/L BUN 29 H (9-20) mg/dL Creatinine 1.56 H (0.66-1.25) mg/dL Glucose 307 H (74-99) mg/dL POC Glucose (mg/dL) (75-99) mg/dL Calcium 8.3 L (8.4-10.2) mg/dL Magnesium 1.2 L (1.6-2.3) mg/dL Total Bilirubin 1.9 H (0.2-1.3) mg/dL AST 350 H (17-59) U/L ALT 65 H (4-49) U/L Troponin I (0.000-0.034) ng/mL Total Protein 6.2 L (6.3-8.2) g/dL Albumin 3.0 L (3.5-5.0) g/dL 03/16/21 03/16/21 03/16/21 Range/Units 06:25 08:53 09:39 WBC (3.8-10.6) k/uL RBC (4.30-5.90) m/uL Hgb (13.0-17.5) gm/dL Hct (39.0-53.0) % Neutrophils # (1.3-7.7) k/uL Monocytes # (0-1.0) k/uL PT (9.0-12.0) sec INR (<1.2) Sodium (137-145) mmol/L BUN (9-20) mg/dL Creatinine (0.66-1.25) mg/dL Glucose (74-99) mg/dL POC Glucose (mg/dL) 304 H (75-99) mg/dL Calcium (8.4-10.2) mg/dL Magnesium (1.6-2.3) mg/dL Total Bilirubin (0.2-1.3) mg/dL AST (17-59) U/L ALT (4-49) U/L Troponin I 144.000 H* 150.000 H* (0.000-0.034) ng/mL Total Protein (6.3-8.2) g/dL Albumin (3.5-5.0) g/dL 03/16/21 Range/Units 11:19 WBC (3.8-10.6) k/uL RBC (4.30-5.90) m/uL Hgb (13.0-17.5) gm/dL Hct (39.0-53.0) % Neutrophils # (1.3-7.7) k/uL Monocytes # (0-1.0) k/uL PT (9.0-12.0) sec INR (<1.2) Sodium (137-145) mmol/L BUN (9-20) mg/dL Creatinine (0.66-1.25) mg/dL Glucose (74-99) mg/dL POC Glucose (mg/dL) 299 H (75-99) mg/dL Calcium (8.4-10.2) mg/dL Magnesium (1.6-2.3) mg/dL Total Bilirubin (0.2-1.3) mg/dL AST (17-59) U/L ALT (4-49) U/L Troponin I (0.000-0.034) ng/mL Total Protein (6.3-8.2) g/dL Albumin (3.5-5.0) g/dL Thrombosis Risk Factor Assmnt - Choose All That Apply Each Factor Represents 1 point: Acute [place] Thrombosis Risk Factor Assessment Total Risk Factor Score: 1 Thrombosis Risk Factor Assessment Level: Low Risk Assessment and Plan Assessment: This is a 75-year-old male with complex past medical history noted below that presented to the emergency room with sudden onset chest pain. Patient was evaluated in the ER and admitted to the hospital for further management of his medical problems noted below. 1. Acute to STEMI, status post left heart catheterization with acutely occluded RCA status post successful stent placement. Also noted mild to moderate disease in the proximal LAD. Patient is on dual antiplatelet therapy. Continue optimal medical management as directed by cardiology. 2. Type 2 diabetes, blood glucose not well controlled. I asked the patient to remove his insulin pump. We will start him on Levemir 10 units twice daily plus sliding scale during this admission. Patient follow-up with the [facility] outpatient. 3. Chronic medical problems, essential hypertension, hyperlipidemia Today, I reviewed his medication list and lab work results. Fasting lipid profile still pending. Continue current regimen otherwise. Awaiting echocardiogram.
[2021-03-16 14:10] VITALS: BP 148/98; PULSE 89; RESP 18
[2021-03-16] MEDS ORDERED: DEXTROSE 5% IN WATER 50 ML BAG ONE (14:26)
[2021-03-16] MEDS ORDERED: AMIODARONE 50 MG/ML 3 ML VIAL IV ONE (14:26)
[2021-03-16] MEDS ORDERED: MAGNESIUM SULFATE SYG 4.06 MEQ/ML SYRINGE ONE (14:26)
[2021-03-16] MEDS ORDERED: SODIUM BICARB 8.4% 50 ML SYR (1 MEQ/ML) ONE ×2 (14:26→15:00)
[2021-03-16] MEDS ORDERED: EPINEPHrine 10 ML SYRINGE (0.1 MG/ML) ONE ×2 (14:26→15:04)
[2021-03-16 14:31] LABS: Glucose,Whole Blood 342 mg/dL (75-99)
[2021-03-16] MEDS ORDERED: propofoL 100 ML IV ONE (14:35)
[2021-03-16] MEDS ORDERED: CHLORHEXIDINE GLUCONATE 15 ML CUP MUCOUS MEM ONE (14:38)
[2021-03-16] MEDS ORDERED: AMIODARONE 360 MG in DEXTROSE 5% IN WATER 200 ML IV ONE ×2 (14:40)
[2021-03-16] MEDS ORDERED: AMIODARONE IN DEXTROSE,ISO-OSM 360 MG/200 ML PLAST..BAG IV ONE (15:00)
[2021-03-16] MEDS ORDERED: ATROPINE OPHTH SOLN 1% 5ML BTL SUBLINGUAL PRN (15:19)
[2021-03-16] MEDS ORDERED: MORPHINE SULFATE 4 MG/ML SYRINGE IV PRN (15:19)
[2021-03-16] MEDS ORDERED: MORPHINE SULFATE 2 MG/ML SYRINGE IV PRN (15:19)
[2021-03-16] MEDS ORDERED: MORPHINE SULFATE (100 MG/2 ML) 100 MG in SODIUM CHLORIDE 0.9% 100 ML IV SCH (15:30)
[2021-03-16] MEDS ORDERED: SCOPOLAMINE 1.5MG/72HR PATCH TRANSDERM SCH (15:30)
--- NOTE | 2021-03-16 15:54 | P.EN ---
I responded to a CODE BLUE called on patient after he was found unresponsive and pulseless the ICU staff with PEA. High quality CPR started immediately and ACLS protocol followed. Patient received multiple rounds of epinephrine and 1 amp of bicarb with subsequent ROSC. Patient was intubated successfully sewn after he became pulseless again and I quality CPR resumed. Patient was given another round of epinephrine and 1 mg of magnesium citrate. We had return of spontaneous circulation for a second time the patient started breathing spontaneously but noted to have a white count Tachycardia on the monitor. He was given IV amiodarone bolus 150 mg and was started on a drip. I was able to go outside the room and talked to his and daughter in the waiting room and give him an update about his critical condition. We discussed options of further resuscitation versus keeping the patient is comfortable and they were trying to make her mind any dysuria minute by the time he went back to the room patient was in PEA arrest again and chest compression was resumed. The intensive was at bedside at the time. Family member updated the nurse that they want the patient to be DO NOT RESUSCITATE and chest compression was halted. Patient has a pulse at the time but very faint. He was already on the mechanical ventilator. I had a prolonged discussion with the patient and son who arrived later about his critical condition. We discussed the damage to the heart muscle secondary to the large heart attack but the patient had. We also discussed the significantly impaired left ventricular function with EF of 20-25%. They agreed to keep the patient on comfort measures. They wanted to spend some time with him before withdrawal of care. I discussed plan of care with nursing staff. Comfort orders will be initiated when patient's family are ready.
--- NOTE | 2021-03-16 16:15 | P.CNPUL ---
History of Present Illness Consult date: 03/16/21 Requesting physician: Jennifer Rivera Reason for consult: other (Cardiac arrest) Chief complaint: Cardiac arrest History of present illness: This is a 75-year-old white male , known history of hypertension, hyperlipidemia, patient presented to the hospital with acute onset of chest discomfort woke him up from sleep. Patient was also complaining of discomfort and arm pain for the last few days. Worse early in the morning. In the ER, the patient was found to have QS pattern in the inferior leads, and ST elevation. Initial troponin was over 100, and patient underwent cardiac catheterization. He was found to have acutely occluded RCA underwent stenting of the vessel. Patient was also found to have left to moderate disease in the proximal LAD and his left end-diastolic pressure was 16. Patient was admitted to the ICU on aspirin, effient, and statin. Echocardiogram showed severely impaired ventricular systolic function with ejection fraction between 20-25%. Patient was doing fairly well while in the ICU, however he suddenly became unresponsive and pulseless, clearly the patient had pulseless electrical activity. Patient had multiple rounds of CPR in the meantime he was intubated placed on mechanical ventilation, and I was asked to see him on consultation. Patient was given multiple rounds of epinephrine, he was also given amiodarone bolus, and he was started on a drip. Patient had multiple episodes of PEA/cardiac arrest, and CPR was on and off. I saw the patient in the ICU, and I participated in his last code. We were able to have return of spontaneous circulation, however patient kept going in and out of pulseless electrical activity. Then the admitting michela mayers discussed his condition with the family, and family decided to stop further CPR, and planning to go to comfort care measures. Discussed his condition with the head of academic technology on the case, and obviously were heading to comfort care measures Review of Systems ROS unobtainable: due to endotracheal tube Past Medical History Past Medical History: Asthma, Diabetes Mellitus, Eye Disorder, Hyperlipidemia, Hypertension, Syncope Additional Past Medical History / Comment(s): IDDM type II-insulin pump, "silent" [place] in the 1979' per EKG, syncopy x2 in 2016, L eye macular pucker- repaired, malaria History of Any Multi-Drug Resistant Organisms: None Reported Past Surgical History: No Surgical Hx Reported, Cholecystectomy Additional Past Surgical History / Comment(s): L eye cataract removed, L eye laser sx, L eye macular pucker surgically repaired, colonoscopy-normal. Past Anesthesia/Blood Transfusion Reactions: No Reported Reaction Date of Last Stent Placement:: 03/16/2101 Past Psychological History: No Psychological Hx Reported Smoking Status: Former smoker Past Alcohol Use History: Rare Past Drug Use History: None Reported - Past Family History Father Family Medical History: Diabetes Mellitus Additional Family Medical History / Comment(s): Father at the age of 73yrs. Mother Family Medical History: Asthma, COPD, Diabetes Mellitus Additional Family Medical History / Comment(s): Mother at the age of 68yrs. Medications and Allergies Home Medications Medication Instructions Recorded Confirmed Type Atorvastatin Calcium [Lipitor] 80 mg PO DAILY 08/02/16 03/16/21 History metFORMIN HCL [Glucophage] 1,000 mg PO BID 08/02/16 03/16/21 History Albuterol Nebulized [Ventolin 2.5 mg INHALATION RT-QID PRN 02/19/19 03/16/21 History Nebulized] Bicalutamide [Casodex] 50 mg PO DAILY 02/19/19 03/16/21 History Losartan/Hydrochlorothiazide 1 tab PO DAILY 02/19/19 03/16/21 History [Losartan-Hctz 100-12.5 mg Tab] Montelukast [Singulair] 10 mg PO HS 02/19/19 03/16/21 History Pantoprazole Sodium [Protonix] 40 mg PO DAILY 02/19/19 03/16/21 History Tamsulosin [Flomax] 0.4 mg PO HS 08/15/19 03/16/21 History hydrOXYzine HCL 10 - 20 mg PO DAILY PRN 08/15/19 03/16/21 History Aspirin [Adult Low Dose Aspirin EC] 81 mg PO DAILY 08/16/19 03/16/21 History Mepolizumab [Nucala] 100 mg SQ Q28D 08/16/19 03/16/21 History Albuterol Inhaler [Ventolin Hfa 2 puff INHALATION RT-QID PRN 03/16/21 03/16/21 History Inhaler] Empagliflozin [Jardiance] 25 mg PO DAILY 03/16/21 03/16/21 History Fluticasone Propion/Salmeterol 1 puff INHALATION RT-BID 03/16/21 03/16/21 History [Fluticasone-Salmeterol 250-50] Liraglutide [Victoza 3-Nelson] 1.8 mg SQ DAILY 03/16/21 03/16/21 History Triamcinolone 0.1% Cream [Kenalog 1 applic TOPICAL BID PRN 03/16/21 03/16/21 History 0.1% Cream] V-Go 20 Pump 0.01 units SQ-PUMP CONTINUOUS 03/16/21 03/16/21 History amLODIPine [Norvasc] 10 mg PO DAILY 03/16/21 03/16/21 History Allergies Allergy/AdvReac Type Severity Reaction Status Date / Time amoxicillin [From Augmentin] Allergy Vomiting Verified 03/16/21 10:58 clavulanic acid Allergy Vomiting Verified 03/16/21 10:58 [From Augmentin] Iodine and Iodide Containing Allergy Rash/Hives Verified 03/16/21 10:58 Produc Quinolones Allergy Unknown Verified 03/16/21 10:58 Physical Exam Vitals: Vital Signs Temp Pulse Resp BP Pulse Ox 03/16/21 14:00 89 18 148/98 94 L 03/16/21 13:11 90 03/16/21 13:02 85 03/16/21 13:00 92 19 150/99 94 L 03/16/21 12:00 93 20 129/94 97 03/16/21 11:00 85 14 127/92 95 03/16/21 10:00 74 14 127/92 90 L 03/16/21 09:20 56 L 18 97 03/16/21 09:10 97.8 F 53 L 15 95 03/16/21 09:04 54 L 14 105/82 03/16/21 07:00 62 18 101/77 96 03/16/21 06:55 61 18 100/61 95 03/16/21 06:50 65 18 112/69 03/16/21 06:47 62 18 110/63 94 L 03/16/21 06:45 84/57 97 03/16/21 06:40 68 18 95/68 96 03/16/21 06:35 66 18 110/64 96 03/16/21 06:32 68 18 114/72 95 03/16/21 06:30 67 18 137/57 98 03/16/21 06:29 67 18 137/57 98 03/16/21 05:54 98.9 F 62 18 103/65 99 Intake and Output 03/16/21 03/16/21 03/16/21 06:59 14:59 22:59 Intake Total 1150 Output Total 0 Balance 1150 Intake: IV 1150 Magnesium Sulfate-D5w Pmx 300 1 gm In Dextrose/Water 1 100ml.bag @ 100 mls/hr IVPB Q1H ОЛЬГА Rx#: [id number] Sodium Chloride 0.9% 1, 450 000 ml @ 75 mls/hr IV . [id number] ОЛЬГА Rx#:[id number] Output: Urine 0 Other: Voiding Method Urinal # Voids 0 Weight 90.718 kg 90.718 kg General appearance: Revealed a 75-year-old white male looks pale and cyanotic, intubated, being bagged by respiratory therapy. Head exam: Atraumatic, normocephalic, endotracheal tube seems to be intact. Eye exam: Nonicteric, pupils are sluggish. ENT exam: The tracheal tube is intact. Moist mucous membranes noted. Respiratory exam: Symmetrical chest expansion, no crackles or rhonchi or wheezes. Cardiovascular Exam: Stent S1 and S2, no S3 gallop. GI/Abdominal exam: Obese soft nontender no rebound no guarding. Neurological exam: Not assessed, patient is comatose. And when I saw the patient CPR was in progress. Results - Laboratory Findings CBC and BMP: 03/16/21 06:25 03/16/21 06:25 PT/INR, D-dimer PT 12.1 sec (9.0-12.0) H 03/16/21 06:25 INR 1.2 (<1.2) H 03/16/21 06:25 Abnormal lab findings: Abnormal Labs 03/16/21 03/16/21 03/16/21 06:25 06:25 06:25 WBC 14.9 H RBC 3.94 L Hgb 12.0 L Hct 36.6 L Neutrophils # 12.1 H Monocytes # 1.2 H PT 12.1 H INR 1.2 H Sodium 133 L BUN 29 H Creatinine 1.56 H Glucose 307 H POC Glucose (mg/dL) Calcium 8.3 L Magnesium 1.2 L Total Bilirubin 1.9 H AST 350 H ALT 65 H Troponin I Total Protein 6.2 L Albumin 3.0 L 03/16/21 03/16/21 03/16/21 06:25 08:53 09:39 WBC RBC Hgb Hct Neutrophils # Monocytes # PT INR Sodium BUN Creatinine Glucose POC Glucose (mg/dL) 304 H Calcium Magnesium Total Bilirubin AST ALT Troponin I 144.000 H* 150.000 H* Total Protein Albumin 03/16/21 03/16/21 03/16/21 11:19 12:23 14:29 WBC RBC Hgb Hct Neutrophils # Monocytes # PT INR Sodium BUN Creatinine Glucose POC Glucose (mg/dL) 299 H 342 H Calcium Magnesium Total Bilirubin AST ALT Troponin I 166.000 H* Total Protein Albumin - Diagnostic Findings CT scan - chest: image reviewed (Chest x-ray on admission showed cardiomegaly and no acute pulmonary process) Assessment and Plan Assessment: Impression: Pulseless electrical activity/cardiac arrest. Acute ST elevation myocardial infarction Status post cardiac catheterization and stenting of RCA. Recommendation: Considering the multiple episodes of pulseless electrical activity Considering the prolonged CPR process Considering the patient's LV dysfunction and ejection fraction of 20-25% at best, I fully agree with comfort care measures, will sign off and see as needed Time with Patient: Greater than 30
[2021-03-16] MEDS ORDERED: INSULIN ASPART (NovoLOG) 100 UNIT/ML VIAL SQ SCH (17:30)
--- NOTE | 2021-03-16 17:51 | P.DS ---
Providers Date of admission: 03/16/21 07:21 Expected date of discharge: 03/16/21 Attending physician: Jennifer Rivera Consults: 03/16/21 06:22 Consult Physician Stat Consulting Provider: Cardiology Clive Consult Reason/Comments: STEMI ACTIVATION COMPLETE Do you want consulting provider notified?: Yes 03/16/21 08:33 Consult Physician Routine Consulting Provider: Cardiology Clive Consult Reason/Comments: Post Interventional patient Do you want consulting provider notified?: Already Contacted 03/16/21 14:45 Consult Physician Stat Consulting Provider: Esteban Wei Consult Reason/Comments: ventilator management Do you want consulting provider notified?: Already Contacted Primary care physician: Tamanna Hernandes MD Hospital Course: Patient on comfort measures with family around him. For exact time of please refer to nursing staff documentation. For further details about this complex hospitalization please refer to my H&P and in the note dated today 03/16/2021 Patient Condition at Discharge: Critical Plan - Discharge Summary Discharge Rx Participant: Yes New Discharge Prescriptions: No Action RX: metFORMIN HCL [Glucophage] 1,000 mg PO BID Atorvastatin Calcium [Lipitor] 80 mg PO DAILY Albuterol Nebulized [Ventolin Nebulized] 2.5 mg INHALATION RT-QID PRN PRN Reason: Shortness Of Breath Bicalutamide [Casodex] 50 mg PO DAILY Losartan/Hydrochlorothiazide [Losartan-Hctz 100-12.5 mg Tab] 1 tab PO DAILY Montelukast [Singulair] 10 mg PO HS Pantoprazole Sodium [Protonix] 40 mg PO DAILY RX: hydrOXYzine HCL 10 - 20 mg PO DAILY PRN PRN Reason: Itching RX: Tamsulosin [Flomax] 0.4 mg PO HS Mepolizumab [Nucala] 100 mg SQ Q28D Aspirin [Adult Low Dose Aspirin EC] 81 mg PO DAILY Empagliflozin [Jardiance] 25 mg PO DAILY Triamcinolone 0.1% Cream [Kenalog 0.1% Cream] 1 applic TOPICAL BID PRN PRN Reason: Rash Fluticasone Propion/Salmeterol [Fluticasone-Salmeterol 250-50] 1 puff INHALATION RT-BID V-Go 20 Pump 0.01 units SQ-PUMP CONTINUOUS Albuterol Inhaler [Ventolin Hfa Inhaler] 2 puff INHALATION RT-QID PRN PRN Reason: Shortness Of Breath Liraglutide [Victoza 3-Nelson] 1.8 mg SQ DAILY amLODIPine [Norvasc] 10 mg PO DAILY Discharge Medication List Atorvastatin Calcium [Lipitor] 80 mg PO DAILY 08/02/16 [History] RX: metFORMIN HCL [Glucophage] 1,000 mg PO BID 08/02/16 [History] Albuterol Nebulized [Ventolin Nebulized] 2.5 mg INHALATION RT-QID PRN 02/19/19 [History] Bicalutamide [Casodex] 50 mg PO DAILY 02/19/19 [History] Losartan/Hydrochlorothiazide [Losartan-Hctz 100-12.5 mg Tab] 1 tab PO DAILY 02/19/19 [History] Montelukast [Singulair] 10 mg PO HS 02/19/19 [History] Pantoprazole Sodium [Protonix] 40 mg PO DAILY 02/19/19 [History] RX: Tamsulosin [Flomax] 0.4 mg PO HS 08/15/19 [History] RX: hydrOXYzine HCL 10 - 20 mg PO DAILY PRN 08/15/19 [History] Aspirin [Adult Low Dose Aspirin EC] 81 mg PO DAILY 08/16/19 [History] Mepolizumab [Nucala] 100 mg SQ Q28D 08/16/19 [History] Albuterol Inhaler [Ventolin Hfa Inhaler] 2 puff INHALATION RT-QID PRN 03/16/21 [History] Empagliflozin [Jardiance] 25 mg PO DAILY 03/16/21 [History] Fluticasone Propion/Salmeterol [Fluticasone-Salmeterol 250-50] 1 puff INHALATION RT-BID 03/16/21 [History] Liraglutide [Victoza 3-Nelson] 1.8 mg SQ DAILY 03/16/21 [History] Triamcinolone 0.1% Cream [Kenalog 0.1% Cream] 1 applic TOPICAL BID PRN 03/16/21 [History] V-Go 20 Pump 0.01 units SQ-PUMP CONTINUOUS 03/16/21 [History] amLODIPine [Norvasc] 10 mg PO DAILY 03/16/21 [History] Follow up Appointment(s)/Referral(s): Tamanna Hernandes MD [Primary Care Provider] - 1-2 days [facility], [NON-STAFF] - 1-2 Days
--- NOTE | 2021-03-16 18:21 | PN ---
PROGRESS NOTE This is a 75-year-old gentleman who presented with an acute inferior OK and underwent PTCA and stenting of a totally occluded RCA by Dr. Gonzalez in the early hours around 6:00 this morning. However, the patient apparently came in somewhat late and on arrival his troponin was 144. Clinically it appears that the patient had an OK 36 to 48 hours ago. However, his RCA was opened up with 3 long drug-eluting stents. About half an hour ago he had an episode of being unresponsive and had pulseless electrical activity, had a CPR on 3 different occasions and was shocked. He now has a pulse with a pressure in the range of about 100 or so after epinephrine. During the third CPR family wished no further aggressive measures and discontinued the CPR. It appears that we will just do a DO NOT RESUSCITATE situation without CPR. We will work with medications only. I am recommending amiodarone. We will check electrolytes, magnesium, and if patient's family decides to make him comfort care, we will not do any further aggressive measures. However, no CPR for now. I came in and evaluated the patient and talked to the family and explained to them that he presented somewhat late after OK and Dr. Gonzalez feels taking him back to the cath lab radiology technician would not necessarily alter the outcome at this point. We will therefore continue conservative measures and defer CPR per patient's family's wishes. Prognosis remains poor. I expect that patient will pass soon and will soon be placed under a comfort care situation. MARBELLA / ORLY: [id number] /
[2021-03-16] MEDS ORDERED: INSULIN DETEMIR (LEVEMIR) 100 UNIT/ML SYR SQ SCH (21:00)
[2021-03-16] MEDS ORDERED: AMIODARONE 450 MG in DEXTROSE 5% IN WATER 250 ML IV SCH ×2 (21:00)
[2021-03-16] MEDS ORDERED: LOSARTAN 25 MG TAB PO SCH (21:00)
[2021-03-16] MEDS ORDERED: ATORVASTATIN 80 MG TAB PO SCH (21:00)
[2021-03-16 23:14] LABS: Chol/HDL Ratio 2.79 Ratio; VLDL Calculation 12.58 mg/dL (5.00-40.00)
[2021-03-17] MEDS ORDERED: INSULIN DETEMIR (LEVEMIR) 100 UNIT/ML SYR SQ SCH (07:00)
[2021-03-17] MEDS ORDERED: PRASUGREL 10 MG TAB PO SCH (09:00)
[2021-03-17] MEDS ORDERED: ASPIRIN 81 MG PO SCH (09:00)
[2021-03-17] MEDS ORDERED: ASPIRIN 325 MG TAB PO SCH (09:00)
[2021-03-17] MEDS ORDERED: METOPROLOL TARTRATE 12.5 MG TAB PO SCH (09:00)
--- NOTE | 2021-03-19 14:02 | CDI ---
Documentation Clarification Form Date: 03/19/2021 01:49:19 PM From: Elisabet Frias RN, CCDS Email: [email or web address] Admit Date: 03/16/2021 07:21:00 AM Patient Name: Marty Hyatt Visit Number: [id number] Discharge Date: 03/16/2021 05:51:00 PM ATTENTION: The Clinical Documentation Specialists (CDI) and [facility] Coding Staff appreciate your assistance in clarifying documentation. Please respond to the clarification below the line at the bottom and electronically sign. The CDI & [facility] Coding staff will review the response and follow-up if needed. Please note: Queries are made part of the Legal Health Record. If you have any questions, please contact the author of this message via ITS. Dr. Jennifer Rivera Your patient had worsening renal function. Based on this information and the findings below, is there an additional diagnosis that is clinically appropriate for this patient? Patient history/risk factors: H&P: "75-year-old male with past medical history noted below presented to the emergency room with sudden onset chest pain that woke him up from his sleep this morning. Patient was evaluated in the ER and was noted to have acute STEMI with significantly elevated troponin level. Patient was taken immediately to the heart cath and underwent left heart catheterization with successful stent placement to RCA. Patient was admitted to the ICU for close monitoring." Clinical Indicators: 03/16 Cath note:" His initial troponin was above 100 and he had evidence of renal and liver function abnormality. Recommendations: His renal function" 03/16 Consult: "Worsening renal function" 03/16 BUN/Cr: 29/1.56 Treatment: renal function followed closely. 0.9 NS @75/hr Is there an additional diagnosis that is clinically appropriate for this patient? [ X ] Acute kidney injury [ ] Other, please specify [ ] Unable to determine (Template Last Reviewed: June 2020) MTDD
== END 2021-03-16 17:51 | disposition expired | DRG 247 ==
LOC: EC 05:51 → 2SICU 07:21
PROVIDERS: ADMIT Internal Medicine; ATTEND Internal Medicine
PROC: 0BH17EZ Insertion of Endotracheal Airway into Trachea, Via Natural or Artificial Opening (ICD-10-PCS; 2021-03-16)
PROC: 5A1935Z Respiratory Ventilation, Less than 24 Consecutive Hours (ICD-10-PCS; 2021-03-16)
PROC: 4A023N7 Measurement of Cardiac Sampling and Pressure, Left Heart, Percutaneous Approach (ICD-10-PCS; 2021-03-16)
PROC: B2111ZZ Fluoroscopy of Multiple Coronary Arteries using Low Osmolar Contrast (ICD-10-PCS; 2021-03-16)
PROC: B2151ZZ Fluoroscopy of Left Heart using Low Osmolar Contrast (ICD-10-PCS; 2021-03-16)
PROC: 027036Z Dilation of Coronary Artery, One Artery with Three Drug-eluting Intraluminal Devices, Percutaneous Approach (ICD-10-PCS; principal; 2021-03-16 10:25)
PROC: 5A12012 Performance of Cardiac Output, Single, Manual (ICD-10-PCS; 2021-03-16 10:25)
DX: I21.19 ST elevation (STEMI) myocardial infarction involving other coronary artery of inferior wall (principal); N17.9 Acute kidney failure, unspecified; J45.909 Unspecified asthma, uncomplicated; E11.9 Type 2 diabetes mellitus without complications; E78.5 Hyperlipidemia, unspecified; I10 Essential (primary) hypertension; J44.9 Chronic obstructive pulmonary disease, unspecified; I25.10 Atherosclerotic heart disease of native coronary artery without angina pectoris; Z96.41 Presence of insulin pump (external) (internal); I46.9 Cardiac arrest, cause unspecified; Z66 Do not resuscitate; Z51.5 Encounter for palliative care; Z98.42 Cataract extraction status, left eye; Z91.041 Radiographic dye allergy status; I25.2 Old myocardial infarction; Z79.01 Long term (current) use of anticoagulants; Z79.4 Long term (current) use of insulin; Z79.82 Long term (current) use of aspirin; Z79.899 Other long term (current) drug therapy; Z86.13 Personal history of malaria; Z87.891 Personal history of nicotine dependence; Z98.890 Other specified postprocedural states; Z88.1 Allergy status to other antibiotic agents; Z88.8 Allergy status to other drugs, medicaments and biological substances; Z82.5 Family history of asthma and other chronic lower respiratory diseases; Z83.3 Family history of diabetes mellitus
CPT/HCPCS: 36415; 71045; 80053; 80061; 83735; 84484; 85025; 85610; 85730; 93005; 93306; 93458; 94640; 96374; 96375; 99291; 99292